=== PATIENT | female | born 1945 | race Caucasian/White ===

== ENCOUNTER → 2016-09-18 | Outpatient (CLI) | payer OTHER ==
[~2016-09-18] MED LIST: ACET325T96 PO; ADVIN10/60 INH; ATOR10TA88 PO; BROM0.07 OPR; CALC1TAB9 PO; CETI10TA10 PO; CHOL1TAB46 PO; FLUT0.15 NAE; LEVO50TA6 PO; MULT60CA PO; OMEP40CA41 PO; PRED1SUS3 OPR
[2016-09-18 13:03] LABS: BLOOD UREA NITROGEN 16 mg/dl (7-18); BUN/CREATININE RATIO 17.9 (10-20); CALCIUM 9.3 mg/dl (8.5-10.1); CARBON DIOXIDE 28 mmol/L (21-32); CHLORIDE 105 mmol/L (98-107); CREATININE 0.88 mg/dl (0.60-1.20); GLUCOSE 101 mg/dl (70-99); SODIUM 142 mmol/L (136-145)
== END | disposition home or self-care (01) ==
LOC: C.LAB1850 11:31
PROVIDERS: ATTEND Nurse Practitioner Adult Health
DX: R03.0 Elevated blood-pressure reading, without diagnosis of hypertension (principal)

== ENCOUNTER → 2016-10-03 | Day surgery (SDC) | payer OTHER ==
[2016-09-13 09:02] VITALS: Ht 167.6 cm; Wt 100.0 kg
[~2016-10-03] VITALS: Ht 167.6 cm; Wt 100.0 kg
[~2016-10-03] MED LIST changes: +500ML BSS 0.3ML EPI 1:1000PF IRRIG ONE; +ACETAMINOPHEN 325 MG TAB PO PRN; +AMVISC PLUS 0.8ML SYRINGE INT OCU ONE; +ATROPINE SULFATE 0.1 MG/ML 5ML SYR IV PRN; +BSS FLUSH ONE; +EpHEDrine SULFATE INJ 50 MG/ML AMP IV PRN; +EpINEphrine INJ 1MG/ML AMP 1 MG/ML AMP ONE; +LACTATED RINGER'S 1000ML 500 ML IV SCH; +LIDOCAINE 3.5% OPH GEL PER APPLICATION CHARGE ONE; +LIDOCAINE HCL 1% MPF 2 ML VIAL ONE; +MIDAZOLAM HCL 1 MG/ML 2ML VIAL ONE; +OCUCOAT 1 ML SOLN IO ONE; +POVIDONE-IODINE OP SOLN 30 ML BTL ONE; +PROPARACAINE 0.5% OP SOLN PER DROP CHARGE OPR SCH; +TOBRAMYCIN/DEXAMETHASONE OPH OINT PER APPLN CHARGE ONE
[2016-10-03] MEDS: PHENYLEPHRINE HCL 2.5% OP SOLN PER DROP CHARGE OPR SCH ×2 (10:17→10:22)
[2016-10-03] MEDS: TROPICAMIDE 1% OP SOLN PER DROP CHARGE OPR SCH ×2 (10:18→10:23)
[2016-10-03] MEDS: CYCLOPENTOLATE HCL 1% OP SOLN PER DROP CHARGE OPR SCH ×2 (10:19→10:24)
[2016-10-03] MEDS: KETOROLAC 0.5% OP SOLN PER DROP CHARGE OPR SCH ×2 (10:20→10:25)
[2016-10-03] MEDS: GATIFLOXACIN OP SOLN PER DROP CHARGE OPR SCH ×2 (10:21→10:30)
--- NOTE | 2016-10-03 10:44 | History & Physical Bridge - [place] ---
H&P Re-Evaluation Bridge Note: I have examined the patient, reviewed the History & Physical and in the interval since the performance of the History & Physical I have noted the following changes of clinical significance: No changes noted
--- NOTE | 2016-10-03 11:28 | Discharge Instructions-SurgCtr ---
Discharge Instructions Date of Service Oct 03, 2016. Visit Reason for Visit: Cataract Right Eye Discharge Discharge Diagnosis / Problem: cataract Discharge Goals Goal(s): Improve function Activity Recommendations Activity Limitations: per Instructions/Follow-up section Anesthesia . Post Anesthesia Instructions: If you have had General Anesthesia or IV Sedation: * Do not drive today. * Resume driving when surgeon permits. * Do not make important decisions or sign legal documents today. * Call surgeon for: 1. Temperature elevations greater than 101 degrees F. 2. Uncontrollable pain. 3. Excessive bleeding. 4. Persistent nausea and vomiting. 5. Medication intolerance (nausea, vomiting or rash). * For nausea and vomiting use only clear liquids such as: tea, soda, bouillon until nausea subsides, then gradually increase diet as tolerated. * If you have any concerns or questions, call your surgeon's office. If physician is unavailable and it is an emergency, call 911 or go to the nearest emergency room. . Instructions / Follow-Up Instructions / Follow-Up ACTIVITY RECOMMENDATIONS: * No strenuous lifting, jogging or running for 4 days * No swimming or yard work for 1 week. * Limited bending is permitted, such as putting on shoes. RETURN TO SCHOOL/WORK: No work until seen by physician in office. MEDICATIONS: Resume previous medications unless instructed otherwise by your surgeon. This includes eye drops for glaucoma. Zymaxid/Gatifloxacin (werner cap) - one drop every 2 hours until bedtime Nevanac/Ilevro/Prolensa/Ketorolac (kimball cap) - one drop every 4 hours until bedtime Prednisolone (white/pink cap, SHAKE WELL) - one drop every 2 hours until bedtime Starting tomorrow - all 3 drops every 4 hours until seen in the office Optive drops - as needed for discomfort SPECIAL CARE INSTRUCTIONS: * Wear eyeshield when sleeping, for four nights. * You may wear your own glasses or sunglasses while awake. * You may read or watch TV * You may shower and wash your face, but be gentle around the eye and pat dry. * Blurry vision and mild irritation are normal. * Call office if pain is more severe or vision becomes dark at . FOLLOW UP VISIT: Follow-up with Dr Carey tomorrow. Diet Recommendations Home Diet: resume previous diet Procedures Procedures Performed: Right Cataract Phacoemulsification With Intraocular Lens Implant Pending Studies Studies pending at discharge: no Medical Emergencies . Who to Call and When: Medical Emergencies: If at any time you feel your situation is an emergency, please call 911 immediately. . Non-Emergent Contact Non-Emergency issues call your: Family Resource Management Professor . . "Provider Documentation" section prepared by Mac Carey.
--- NOTE | 2016-10-03 11:28 | [facility] Operative Report ---
Operative Report Date of Service Oct 03, 2016. Operative Report 1. PREOPERATIVE DIAGNOSIS: Cataract of the right eye. 2. POSTOPERATIVE DIAGNOSIS: Same. 3. PROCEDURE: Phacoemulsification with intraocular lens implantation of the right eye. SURGEON: Dr. Mac Carey. ANESTHESIA: Topical Lidocaine gel, 1% Non- Preserved intracameral Lidocaine, and monitored intravenous sedation. INDICATIONS FOR THE PROCEDURE: The patient is a 71 - year-old female with a history of cataract of the right eye causing significant visual impairment. The details of the proposed procedure were explained to the patient who asked appropriate questions and following discussion of all risks, benefits and alternatives agreed to have the procedure done. 4. OPERATION AND FINDINGS: DESCRIPTION OF PROCEDURE: After informed consent was obtained, the patient was brought to the Operating Room at the [facility]. The patient was placed in a supine position and then the right eye was prepped and draped in the usual sterile fashion for intraocular surgery. A drop of topical Lidocaine gel was placed in the operative eye. A wire lid speculum was then placed in the fornices. A corneal paracentesis was then created temporally. The Non-Preserved Lidocaine was then instilled into the anterior chamber. The anterior chamber was then pressurized with viscoelastic. A 2.0 mm clear corneal incision was then created temporally. A cystotome was inserted into the anterior chamber and used to create a tear in the anterior lens capsule. This capsular tear was then used to create a small flap and the flap was dragged in a counterclockwise direction in order to create a continuous curvilinear capsulorrhexis. Hydrodissection was accomplished with balanced salt solution. Phacoemulsification of the lens nucleus was then performed in a standard [id number] technique. The phaco time was 24 seconds with an average power of 18 %. The remaining cortical material was removed using irrigation aspiration. The capsular bag was then filled with viscoelastic. A Bausch & Lomb MX60 +22.5 diopters lens was then loaded into the injector and injected into the capsular bag. The remaining viscoelastic was removed with the irrigation aspiration handpiece. The wound was hydrated and then checked and found to be watertight. The intraocular pressure was checked and found to be adequate. The wire lid speculum was removed and the patient's face was cleaned and dried. TobraDex ointment was placed in the inferior fornix. The patient was discharged to the Recovery Room having tolerated the procedure well. There were no complications. The patient will be seen tomorrow in the office for follow-up. I attest to the content of the Intraoperative Record and any orders documented therein. Any exceptions are noted below.
[2016-10-03 11:29] VITALS: TEMP 36.4
--- NOTE | 2016-10-03 11:48 | Anesthesia Progress Nt - [facility] ---
Anesthesia Post Op Note Date & Time Oct 03, 2016 at 11:49 Vital Signs Pain Intensity: 0 Vital Signs Past 12 Hours Date Time Temp Pulse Resp B/P Pulse Ox O2 Delivery O2 Flow Rate FiO2 10/03/16 11:29 36.4 80 16 151/90 95 Room Air 10/03/16 10:12 36.4 81 18 170/100 95 Room Air Notes Mental Status: alert / awake / arousable, participated in evaluation Pt Amnestic to Procedure: Yes Nausea / Vomiting: adequately controlled Pain: adequately controlled Airway Patency, RR, SpO2: stable & adequate BP & HR: stable & adequate Hydration State: stable & adequate Anesthetic Complications: no major complications apparent
[2016-10-03 11:53] VITALS: BP 140/89; PULSE 73; O2SAT 97
== END | disposition home or self-care (01) ==
LOC: X.SURG 10:01
PROVIDERS: ATTEND Ophthalmology
DX: H26.9 Unspecified cataract (principal); E03.9 Hypothyroidism, unspecified; E78.5 Hyperlipidemia, unspecified; R03.0 Elevated blood-pressure reading, without diagnosis of hypertension

== ENCOUNTER → 2016-10-24 | Day surgery (SDC) | payer OTHER ==
[2016-10-12 14:05] VITALS: Ht 167.6 cm; Wt 100.0 kg
[~2016-10-24] VITALS: Ht 167.6 cm; Wt 100.0 kg
[~2016-10-24] MED LIST changes: +FENTANYL CITRATE INJ 50 MCG/1 ML 2 ML VIAL IV PRN; +FLUMAZENIL 0.1 MG/1 ML 10 ML VIAL IV PRN; +HYDROmorphone INJ 2 MG/ML SYR/VIAL IV PRN; +LABETALOL HCL IV 5 MG/ML 20ML IV PRN; +MEPERIDINE HCL 25 MG/ML CARP IV PRN; +NALOXONE HCL 0.4 MG/1 ML VIAL/CARP IV PRN; +ONDANSETRON INJ 2 MG/ML 2 ML VIAL IV PRN; +PHENYLEPHRINE 100MCG/ML 5ML SYR IV PRN; +PROPARACAINE 0.5% OP SOLN PER DROP CHARGE OPL SCH; -PROPARACAINE 0.5% OP SOLN PER DROP CHARGE OPR SCH
[2016-10-24] MEDS: PHENYLEPHRINE HCL 2.5% OP SOLN PER DROP CHARGE OPL SCH ×2 (08:08→08:14)
[2016-10-24] MEDS: TROPICAMIDE 1% OP SOLN PER DROP CHARGE OPL SCH ×2 (08:09→08:15)
[2016-10-24] MEDS: CYCLOPENTOLATE HCL 1% OP SOLN PER DROP CHARGE OPL SCH ×2 (08:10→08:16)
[2016-10-24] MEDS: KETOROLAC 0.5% OP SOLN PER DROP CHARGE OPL SCH ×2 (08:11→08:17)
[2016-10-24] MEDS: GATIFLOXACIN OP SOLN PER DROP CHARGE OPL SCH ×2 (08:12→08:24)
--- NOTE | 2016-10-24 09:09 | Discharge Instructions-SurgCtr ---
Discharge Instructions Date of Service Oct 24, 2016. Visit Reason for Visit: Left Cataract Discharge Discharge Diagnosis / Problem: cataract Discharge Goals Goal(s): Improve function Activity Recommendations Activity Limitations: per Instructions/Follow-up section Anesthesia . Post Anesthesia Instructions: If you have had General Anesthesia or IV Sedation: * Do not drive today. * Resume driving when surgeon permits. * Do not make important decisions or sign legal documents today. * Call surgeon for: 1. Temperature elevations greater than 101 degrees F. 2. Uncontrollable pain. 3. Excessive bleeding. 4. Persistent nausea and vomiting. 5. Medication intolerance (nausea, vomiting or rash). * For nausea and vomiting use only clear liquids such as: tea, soda, bouillon until nausea subsides, then gradually increase diet as tolerated. * If you have any concerns or questions, call your surgeon's office. If physician is unavailable and it is an emergency, call 911 or go to the nearest emergency room. . Instructions / Follow-Up Instructions / Follow-Up ACTIVITY RECOMMENDATIONS: * No strenuous lifting, jogging or running for 4 days * No swimming or yard work for 1 week. * Limited bending is permitted, such as putting on shoes. RETURN TO SCHOOL/WORK: No work until seen by physician in office. MEDICATIONS: Resume previous medications unless instructed otherwise by your surgeon. This includes eye drops for glaucoma. Zymaxid/Gatifloxacin (werner cap) - one drop every 2 hours until bedtime Nevanac/Ilevro/Prolensa/Ketorolac (kimball cap) - one drop every 4 hours until bedtime Prednisolone (white/pink cap, SHAKE WELL) - one drop every 2 hours until bedtime Starting tomorrow - all 3 drops every 4 hours until seen in the office Optive drops - as needed for discomfort SPECIAL CARE INSTRUCTIONS: * Wear eyeshield when sleeping, for four nights. * You may wear your own glasses or sunglasses while awake. * You may read or watch TV * You may shower and wash your face, but be gentle around the eye and pat dry. * Blurry vision and mild irritation are normal. * Call office if pain is more severe or vision becomes dark at . FOLLOW UP VISIT: Follow-up with Dr Carey tomorrow. Diet Recommendations Home Diet: resume previous diet Procedures Procedures Performed: Left Cataract Phacoemulsification With Intraocular Lens Implant Pending Studies Studies pending at discharge: no Medical Emergencies . Who to Call and When: Medical Emergencies: If at any time you feel your situation is an emergency, please call 911 immediately. . Non-Emergent Contact Non-Emergency issues call your: Administrative Clerk . . "Provider Documentation" section prepared by Mac Carey.
--- NOTE | 2016-10-24 09:10 | [facility] Operative Report ---
Operative Report Date of Service Oct 24, 2016. Operative Report 1. PREOPERATIVE DIAGNOSIS: Cataract of the left eye. 2. POSTOPERATIVE DIAGNOSIS: Same. 3. PROCEDURE: Phacoemulsification with intraocular lens implantation of the left eye. SURGEON: Dr. Mac Carey. ANESTHESIA: Topical Lidocaine gel, 1% Non- Preserved intracameral Lidocaine, and monitored intravenous sedation. INDICATIONS FOR THE PROCEDURE: The patient is a 71 - year-old female with a history of cataract of the left eye causing significant visual impairment. The details of the proposed procedure were explained to the patient who asked appropriate questions and following discussion of all risks, benefits and alternatives agreed to have the procedure done. 4. OPERATION AND FINDINGS: DESCRIPTION OF PROCEDURE: After informed consent was obtained, the patient was brought to the Operating Room at the [facility]. The patient was placed in a supine position and then the left eye was prepped and draped in the usual sterile fashion for intraocular surgery. A drop of topical Lidocaine gel was placed in the operative eye. A wire lid speculum was then placed in the fornices. A corneal paracentesis was then created temporally. The Non-Preserved Lidocaine was then instilled into the anterior chamber. The anterior chamber was then pressurized with viscoelastic. A 2.0 mm clear corneal incision was then created temporally. A cystotome was inserted into the anterior chamber and used to create a tear in the anterior lens capsule. This capsular tear was then used to create a small flap and the flap was dragged in a counterclockwise direction in order to create a continuous curvilinear capsulorrhexis. Hydrodissection was accomplished with balanced salt solution. Phacoemulsification of the lens nucleus was then performed in a standard [id number]-[id number] technique. The phaco time was 29 seconds with an average power of 9 %. The remaining cortical material was removed using irrigation aspiration. The capsular bag was then filled with viscoelastic. A Bausch & Lomb MX60 +22.0 diopters lens was then loaded into the injector and injected into the capsular bag. The remaining viscoelastic was removed with the irrigation aspiration handpiece. The wound was hydrated and then checked and found to be watertight. The intraocular pressure was checked and found to be adequate. The wire lid speculum was removed and the patient's face was cleaned and dried. TobraDex ointment was placed in the inferior fornix. The patient was discharged to the Recovery Room having tolerated the procedure well. There were no complications. The patient will be seen tomorrow in the office for follow-up. I attest to the content of the Intraoperative Record and any orders documented therein. Any exceptions are noted below.
[2016-10-24 09:11] VITALS: TEMP 36.6
--- NOTE | 2016-10-24 09:15 | Anesthesia Progress Nt - [facility] ---
Anesthesia Post Op Note Date & Time Oct 24, 2016 at 09:15 Vital Signs Pain Intensity: 0 Vital Signs Past 12 Hours Date Time Temp Pulse Resp B/P Pulse Ox O2 Delivery O2 Flow Rate FiO2 10/24/16 09:11 36.6 77 12 119/81 95 Room Air 10/24/16 08:00 36.5 79 16 141/85 95 Room Air Notes Mental Status: alert / awake / arousable, participated in evaluation Pt Amnestic to Procedure: Yes Nausea / Vomiting: adequately controlled Pain: adequately controlled Airway Patency, RR, SpO2: stable & adequate BP & HR: stable & adequate Hydration State: stable & adequate Anesthetic Complications: no major complications apparent
[2016-10-24 09:27] VITALS: BP 134/85; PULSE 72; O2SAT 96
== END | disposition home or self-care (01) ==
LOC: X.SURG 07:32
PROVIDERS: ATTEND Ophthalmology
DX: H26.9 Unspecified cataract (principal); K21.9 Gastro-esophageal reflux disease without esophagitis; I10 Essential (primary) hypertension; E78.5 Hyperlipidemia, unspecified; E03.9 Hypothyroidism, unspecified; Z98.51 Tubal ligation status; J45.909 Unspecified asthma, uncomplicated; Z98.890 Other specified postprocedural states; E66.9 Obesity, unspecified; Z68.38 Body mass index [BMI] 38.0-38.9, adult

== ENCOUNTER → 2017-03-22 | Outpatient (CLI) | payer OTHER ==
[~2017-03-22] MED LIST changes: -500ML BSS 0.3ML EPI 1:1000PF IRRIG ONE; -ACETAMINOPHEN 325 MG TAB PO PRN; -AMVISC PLUS 0.8ML SYRINGE INT OCU ONE; -ATROPINE SULFATE 0.1 MG/ML 5ML SYR IV PRN; -BSS FLUSH ONE; -EpHEDrine SULFATE INJ 50 MG/ML AMP IV PRN; -EpINEphrine INJ 1MG/ML AMP 1 MG/ML AMP ONE; -FENTANYL CITRATE INJ 50 MCG/1 ML 2 ML VIAL IV PRN; -FLUMAZENIL 0.1 MG/1 ML 10 ML VIAL IV PRN; -HYDROmorphone INJ 2 MG/ML SYR/VIAL IV PRN; -LABETALOL HCL IV 5 MG/ML 20ML IV PRN; -LACTATED RINGER'S 1000ML 500 ML IV SCH; -LIDOCAINE 3.5% OPH GEL PER APPLICATION CHARGE ONE; -LIDOCAINE HCL 1% MPF 2 ML VIAL ONE; -MEPERIDINE HCL 25 MG/ML CARP IV PRN; -MIDAZOLAM HCL 1 MG/ML 2ML VIAL ONE; -NALOXONE HCL 0.4 MG/1 ML VIAL/CARP IV PRN; -OCUCOAT 1 ML SOLN IO ONE; -ONDANSETRON INJ 2 MG/ML 2 ML VIAL IV PRN; -PHENYLEPHRINE 100MCG/ML 5ML SYR IV PRN; -POVIDONE-IODINE OP SOLN 30 ML BTL ONE; -PROPARACAINE 0.5% OP SOLN PER DROP CHARGE OPL SCH; -TOBRAMYCIN/DEXAMETHASONE OPH OINT PER APPLN CHARGE ONE
--- NOTE | 2017-03-23 13:35 | MAMMOGRAPHY REPORT ---
BILATERAL DIGITAL SCREENING MAMMOGRAM TOMOSYNTHESIS WITH CAD: 03/22/2017 CLINICAL HISTORY: Routine screening. Patient has no complaints. TECHNIQUE: Breast tomosynthesis in addition to standard 2D mammography was performed. Current study was also evaluated with a Computer Aided Detection (CAD) system. COMPARISON: Comparison is made to exams dated: 01/07/2016 ultrasound, 01/07/2016 mammogram, 02/05/2015 mammogram, 02/03/2014 mammogram, 09/11/2012 mammogram, and 08/22/2011 mammogram - [facility]. BREAST COMPOSITION: The tissue of both breasts is heterogeneously dense, which may obscure small mas ses. FINDINGS: No suspicious masses, calcifications, or areas of architectural distortion are noted in ei ther breast. There has been no significant interval change compared to prior exams. Scattered bilater al benign-appearing calcifications are not significantly changed. A biopsy marker clip is again note d in the left upper inner quadrant. IMPRESSION: ACR BI-RADS CATEGORY 2: BENIGN There is no mammographic evidence of malignancy. A 1 year screening mammogram is recommended. The pa tient will receive written notification of the results. Approximately 10% of breast cancers are not detected with mammography. A negative mammographic report should not delay biopsy if a clinically suggestive mass is present. Marialuisa Collins M.D. /:03/22/2017 16:55:12 Professor Of Anthropology: Ashley ALANIZ(R)(M), [facility] letter sent: Normal 1/2 BI-RADS Code: ACR BI-RADS Category 2: Benign
== END | disposition home or self-care (01) ==
LOC: C.MAMM 14:03
PROVIDERS: ATTEND Internal Medicine
DX: Z12.31 Encounter for screening mammogram for malignant neoplasm of breast (principal)

== ENCOUNTER → 2017-06-04 | Outpatient (CLI) | payer OTHER ==
[~2017-06-04] MED LIST changes: +ATOR10TA82 PO; -ATOR10TA88 PO
[2017-06-04 11:39] LABS: ALT/SGPT 24 U/L (12-78); AST/SGOT 13 U/L (15-37); BLOOD UREA NITROGEN 17 mg/dl (7-18); BUN/CREATININE RATIO 19.5 (10-20); CALCIUM 9.2 mg/dl (8.5-10.1); CARBON DIOXIDE 31 mmol/L (21-32); CHLORIDE 106 mmol/L (98-107); CREATININE 0.86 mg/dl (0.60-1.20); GLUCOSE 98 mg/dl (70-99); POTASSIUM 4.1 mmol/L (3.5-5.1); SODIUM 139 mmol/L (136-145)
[2017-06-04 11:42] LABS: ALB/GLOB RATIO 0.9 (0.9-2); ALKALINE PHOSPHATASE 82 U/L (45-117); CHOLESTEROL 149 mg/dl (0-200); CHOLESTEROL/HDL RATIO 2.6; HDL CHOLESTEROL 58 mg/dl; LDL CHOLESTEROL CALCULATED 67 mg/dl; TRIGLYCERIDES 120 mg/dl (0-150); VERY LOW DENSITY LIPOPROT CALC 24 mg/dl
== END | disposition home or self-care (01) ==
LOC: C.LAB1850 10:11
PROVIDERS: ATTEND Internal Medicine
DX: E78.5 Hyperlipidemia, unspecified (principal); E55.9 Vitamin D deficiency, unspecified; Z11.59 Encounter for screening for other viral diseases

== ENCOUNTER → 2017-12-10 | Outpatient (CLI) | payer OTHER ==
[~2017-12-10] MED LIST changes: +ACET-1693 PO; -ACET325T96 PO
[2017-12-10 10:08] LABS: ALBUMIN 3.7 gm/dl (3.4-5.0); ALT/SGPT 29 U/L (12-78); AST/SGOT 19 U/L (15-37); BLOOD UREA NITROGEN 17 mg/dl (7-18); CARBON DIOXIDE 31 mmol/L (21-32); CHOLESTEROL 151 mg/dl (0-200); CREATININE 0.86 mg/dl (0.60-1.20); GLUCOSE 98 mg/dl (70-99); POTASSIUM 4.3 mmol/L (3.5-5.1); SODIUM 140 mmol/L (136-145)
[2017-12-10 10:18] LABS: ALKALINE PHOSPHATASE 76 U/L (45-117); LDL CHOLESTEROL CALCULATED 66 mg/dl; TOTAL PROTEIN 7.5 gm/dl (6.4-8.2)
== END | disposition home or self-care (01) ==
LOC: C.LAB1850 08:26
PROVIDERS: ATTEND Internal Medicine
DX: E78.5 Hyperlipidemia, unspecified (principal); E03.9 Hypothyroidism, unspecified

== ENCOUNTER 2019-02-19 06:36 | Inpatient (IN) ==
--- NOTE | 2019-01-27 09:22 | PAT Medication Instructions ---
Medication Instructions Date of Service January 27, 2019 Home Medications Medication Instructions Recorded omeprazole 40 mg capsule,delayed 40 mg PO QAM #90 cap 01/13/19 release Zyrtec 1 tab PO QAM albuterol sulfate [Proventil HFA] 1 puff INHALATION Q6H NEEDED atorvastatin 10 mg PO HS calcium carb-D3-mag ox-zinc ox 1 tab PO HS cholecalciferol (vitamin D3) [Vitamin D3] 1,000 unit PO QAM epinephrine [EpiPen] 0.3 mg IM Q3H NEEDED fluticasone propion-salmeterol [Advair Diskus] 1 puff INHALATION BID fluticasone propionate [Flonase Allergy Relief] 1 spray INTRANASAL BID ibuprofen 400 mg PO QID NEEDED omeprazole 40 mg capsule,delayed release 40 mg PO QAM acetaminophen 325 mg tablet 325 mg PO NEEDED levothyroxine 75 mcg PO QAM vit C,W-Kq-bfzoo-lutein-zeaxan [PreserVision AREDS-2] 1 tab PO HS Continue as directed epinephrine [EpiPen] 0.3 mg IM Q3H NEEDED ASK your surgeon for instructions ibuprofen 400 mg PO QID NEEDED STOP taking 2 weeks before surgery vit C,I-Dw-tfbbj-lutein-zeaxan [PreserVision AREDS-2] 1 tab PO HS DO NOT take the morning of surgery Zyrtec 1 tab PO QAM cholecalciferol (vitamin D3) [Vitamin D3] 1,000 unit PO QAM fluticasone propionate [Flonase Allergy Relief] 1 spray INTRANASAL BID Take morning of surgery With a small sip of water, OTHERWISE NOTHING TO EAT OR DRINK AFTER MIDNIGHT: albuterol sulfate [Proventil HFA] 1 puff INHALATION Q6H NEEDED (if needed; bring to hospital) fluticasone propion-salmeterol [Advair Diskus] 1 puff INHALATION BID omeprazole 40 mg capsule,delayed release 40 mg PO QAM acetaminophen 325 mg tablet 325 mg PO NEEDED (if needed; stop 4 hours before surgery) levothyroxine 75 mcg PO QAM Take evening before surgery albuterol sulfate [Proventil HFA] 1 puff INHALATION Q6H NEEDED (if needed) atorvastatin 10 mg PO HS calcium carb-D3-mag ox-zinc ox 1 tab PO HS fluticasone propion-salmeterol [Advair Diskus] 1 puff INHALATION BID fluticasone propionate [Flonase Allergy Relief] 1 spray INTRANASAL BID acetaminophen 325 mg tablet 325 mg PO NEEDED (if needed) Other Notes If you have any questions please call us at [phone] or [phone] or [phone] or [phone]
--- NOTE | 2019-01-27 09:44 | Anesthesiology Consultation ---
Date of Service January 27, 2019 Assessment & Plan (1) Encounter for pre-operative examination: Chart Review Chart Review: Acceptable Risk for Surgery and Patient seen in Pre Admission Testing Teaching & Discussion Instructed NPO after midnight before surgery, except medications with 15 cc of water. Medication instructions provided according to the PAT guidelines. History Surgery Operation Date: 02/19/19 08:50 Proposed Procedures p Left Total Knee Arthroplasty - Jose Miguel Holly MD Height/Weight Height: 5 ft 5 in Weight: 103.3 kg Allergies Allergy/AdvReac Type Severity Reaction Status Date / Time alendronate sodium AdvReac Mild Headache Verified 01/27/19 08:50 [From Fosamax] house dust mite AdvReac CONGESTION Verified 01/27/19 08:50 [place] Allergy Intermediate HIVES Uncoded 01/27/19 08:50 [place]istle Allergy Intermediate HIVES Uncoded 01/27/19 08:50 Dust Mite Extract AdvReac Mild CONGESTION Uncoded 01/27/19 08:50 Medications Home Medications Medication Instructions Recorded Confirmed Last Taken Zyrtec 1 tab PO QAM 04/30/18 01/27/19 05/07/18 06:30 albuterol sulfate [Proventil HFA] 1 puff INHALATION Q6H PRN 04/30/18 01/27/19 05/07/18 0630 atorvastatin 10 mg PO HS 04/30/18 01/27/19 05/06/18 23:59 calcium carb-D3-mag ox-zinc ox 1 tab PO HS 04/30/18 01/27/19 Unknown cholecalciferol (vitamin D3) 1,000 unit PO QAM 04/30/18 01/27/19 05/07/18 06:30 [Vitamin D3] epinephrine [EpiPen] 0.3 mg IM Q3H PRN 04/30/18 01/27/19 Unknown fluticasone propion-salmeterol 1 puff INHALATION BID 04/30/18 01/27/19 05/07/18 06:30 [Advair Diskus] fluticasone propionate [Flonase 1 spray INTRANASAL BID 04/30/18 01/27/19 05/06/18 23:59 Allergy Relief] ibuprofen 400 mg PO QID PRN 04/30/18 01/27/19 05/07/18 06:30 omeprazole 40 mg capsule,delayed 40 mg PO QAM #90 cap 01/13/19 01/27/19 Unknown release acetaminophen 325 mg tablet 325 mg PO ONCE PRN tab 01/14/19 01/27/19 Unknown levothyroxine 75 mcg PO QAM 01/27/19 01/27/19 Unknown vit C,Y-Up-mazie-lutein-zeaxan 1 tab PO HS 01/27/19 01/27/19 Unknown [PreserVision AREDS-2] Past Medical History Medical History Acid reflux disease (Chronic) Vitamin D deficiency (Chronic) Prediabetes (Chronic) Hypothyroidism (Chronic) Hyperlipidemia (Chronic) History of osteopenia (Chronic) Asthma INHALER PRN, TRIGGERED BY SEASONAL ALLERGIES. Environmental allergies Osteoarthritis Exercise / Class Metabolic Activity II 4-5 Yardwork/Stairs/Walk up hill (Denies CP or SOB with 1 FOS) Past Surgical History Surgical History H/O bilateral cataract extraction H/O oral surgery ON GUMS History of bilateral tubal ligation History of breast biopsy X2--LEFT BENIGN History of colonoscopy Past Anesthesia History No Hx of Anesthesia Complications and No Family Hx of Anesthesia Complications History of PONV No Hx of PONV and Hx of Motion Sickness Social History Smoking Status: Never smoker Do You Dip or Chew Tobacco: No Hx Alcohol Use: No Hx Substance Use: No substance use type: does not use Review of Systems Pt denies any recent chest pain, shortness of breath, palpitations, fever or URI. +chronic cough 2/2 allergies Physical Exam Vital Signs BP: 138/88 P: 73bpm SPO2: 95% RA T: 97.8 F R: 16 ENMT Mouth: + dental restorations (few crowns, one implant front upper incisor); no chipped teeth and no loose teeth Thyromental Distance: < 3.5 Finger Breadths (3) Mallampati Class: I Neck + thick neck; neck extension not limited Respiratory normal respiratory effort Auscultation: lungs clear to auscultation bilaterally Cardiovascular Rate/Rhythm: regular rate and regular rhythm Heart Sounds: no murmur Vessels: no carotid bruit Extremities: no edema Testing Laboratory Results 01/27/19 09:54 01/27/19 09:54 PT 9.8 Seconds (9.0-12.0) 01/27/19 09:54 INR 1.0 (0.9-1.1) 01/27/19 09:54 APTT 26.5 Seconds (21.0-31.0) 01/27/19 09:54 Hemoglobin A1c 5.9 % (4.5-5.6) H 01/27/19 09:54 Urine Color Yellow 01/27/19 Unknown Urine Appearance Clear (Clear) 01/27/19 Unknown Urine pH 5.5 (4.5-7.5) 01/27/19 Unknown Ur Specific [place] 1.019 (1.000-1.030) 01/27/19 Unknown Urine Protein Negative (Negative) 01/27/19 Unknown Urine Glucose (UA) Negative (Negative) 01/27/19 Unknown Urine Ketones Negative (Negative) 01/27/19 Unknown Urine Nitrite Negative (Negative) 01/27/19 Unknown Ur Leukocyte Esterase Negative (Negative) 01/27/19 Unknown Blood Type B Positive 01/27/19 09:54 Antibody Screen NEGATIVE 01/27/19 09:54 Electrocardiogram Date: 04/23/18 Findings: + NSR @ (77) Left axis deviation. Chest X-Ray Date: 01/27/19 IMPRESSION: Subsegmental atelectatic changes most pronounced within the right middle lobe and lingula. Otherwise negative chest.
[2019-01-27 12:32] LABS: Appearance Urine Clear (Clear); Bilirubin Urine Negative (Negative); Blood Urine Negative (Negative); Color Urine Yellow; Glucose Urine UA Negative (Negative); Ketones Urine Negative (Negative); Leukocyte Esterase Urine Negative (Negative); Nitrite Urine Negative (Negative); Protein Urine Negative (Negative); Specific Gravity Urine 1.019 (1.000-1.030); Urobilinogen Urine Negative (Negative); pH Urine 5.5 (4.5-7.5)
[2019-01-27 12:33] LABS: Basophils # (auto) 0.01 K/uL (0-0.2); Basophils % (auto) 0.2 %; Eosinophils # (auto) 0.05 K/uL (0-0.5); Hemoglobin 14.2 g/dL (12.0-16.0); Immature Granulocytes # (auto) 0.02 K/uL (0.00-0.02); Immature Granulocytes % (auto) 0.4 %; Lymphocytes # (auto) 1.41 K/uL (1.2-3.4); Lymphocytes % (auto) 28.4 %; Mean Corpuscular Hgb Conc 33.8 g/dL (32-36); Mean Corpuscular Volume 102.4 fL (80-100); Mean Platelet Volume 9.9 fL (7.4-10.4); Monocytes # (auto) 0.56 K/uL (0.11-0.59); Monocytes % (auto) 11.3 %; Neutrophils # (auto) 2.92 K/uL (1.4-6.5); Neutrophils % (auto) 58.7 %; Platelet Count 187 K/uL (130-400); RDW Coefficient of Variation 12.9 % (11.5-14.5); White Blood Count 4.97 K/uL (4.8-10.8)
[2019-01-27 12:38] LABS: Albumin Level 3.7 gm/dl (3.4-5.0); Calcium 9.1 mg/dl (8.5-10.1); Creatinine Clr Calc Pharmacy 60.6 ml/min; Est GFR (African American) 65.2; Est GFR (Non-African American) 56.2; Potassium 4.4 mmol/L (3.5-5.1)
[2019-01-27 12:49] LABS: Partial Thromboplastin Time 26.5 Seconds (21.0-31.0); Prothrombin Time 9.8 Seconds (9.0-12.0)
[2019-01-27 13:27] LABS: Estimated Average Glucose 123 mg/dl; Hemoglobin A1C 5.9 % (4.5-5.6)
--- NOTE | 2019-02-18 19:25 | History and Physical Report ---
DATE OF ADMISSION: 02/19/2019 CHIEF COMPLAINT: Chronic left knee pain. HISTORY OF PRESENT ILLNESS: This is a 73-year-old female patient of Dr. Holly'pedro complaining of chronic left knee pain, longstanding, now progressively getting worse. The patient has failed conservative treatment including Tylenol, anti-inflammatories, home exercise program, the use of a wrap and the use of a cane. She has increased pain with weightbearing activities and her pain does interfere with her activities of daily living. The patient has been diagnosed with end-stage osteoarthritis per clinical and radiographic exams and the patient wished to proceed with a left total knee arthroplasty. PAST MEDICAL HISTORY: Asthma, chronic cough, osteoarthritis, acid reflux, obesity. SOCIAL HISTORY: Nonsmoker, nondrinker. PAST SURGICAL HISTORY: Tubal ligation, breast biopsy x2, dental surgery. FAMILY HISTORY: Noncontributory. REVIEW OF SYSTEMS: Chronic left knee pain and instability. Otherwise, denies any shortness of breath, chest pain, nausea, vomiting or any other joint complaints. MEDICATIONS: 1. Atorvastatin 10 mg daily. 2. Omeprazole 40 mg daily. 3. PreserVision 2 tablets daily. 4. Advair Diskus 100 mcg twice daily inhalation as needed. 5. Ibuprofen 200 mg as needed. 6. Levothyroxine 75 mcg daily. 7. Fluticasone proprionate twice daily. 8. Zyrtec 10 mg daily. 9. Vitamin D3 1000 units daily. 10. Citracal plus vitamin D daily. ALLERGIES: No known drug allergies. PHYSICAL EXAMINATION: GENERAL: Well-developed, well-nourished 73-year-old female in no acute distress. She is alert and oriented x3 and pleasant. HEENT: Normocephalic, atraumatic. Extraocular motions are intact. Pupils are equal and reactive to light. HEART: Regular rate and rhythm, no murmurs. LUNGS: Clear. ABDOMEN: Soft, nontender, bowel sounds present. EXTREMITIES: Left knee reveals a varus deformity with medial joint line tenderness. She has a limited range of motion of 0-125. She has a mild effusion, 5/5 strength and neurologically and neurovascularly she is intact in her left lower extremity. DIAGNOSES: Left knee end-stage osteoarthritis, asthma, chronic cough, acid reflux, obesity. PLAN: The patient was advised of her diagnosis. Indications, risks, benefits, postop course have all been reviewed. The patient wished to proceed with a left total knee arthroplasty. Necessary consent forms, preoperative testing and clearances will be obtained.
[~2019-02-19 06:36] MED LIST changes: -ACET-1693 PO; +ACETAMINOPHEN 500 MG TAB PO SCH; -ADVIN10/60 INH; -ATOR10TA82 PO; -BROM0.07 OPR; +BUPIVACAINE 0.25% 30 ML VIAL ONE; +BUPIVACAINE 0.5 % 5 MG/1 ML PF 10ML VIAL ONE; -CALC1TAB9 PO; +CEFAZOLIN 2000MG 2,000 MG/15 ML SYR IV SCH; -CETI10TA10 PO; -CHOL1TAB46 PO; +CeleBREX 200 MG CAP PO SCH; +FAMOTIDINE 20 MG TAB PO SCH; -FLUT0.15 NAE; +GABAPENTIN 300 MG CAP PO SCH; -LEVO50TA6 PO; +LR 500ML BOLUS, THEN 15ML/HR IV SCH; +METOCLOPRAMIDE HCL 10 MG TABLET PO SCH; -MULT60CA PO; -OMEP40CA41 PO; -PRED1SUS3 OPR; +ROPIVACAINE 0.5% HCL/PF 150 MG, BUPIVACAINE 0.5% MPF 30 ML, EPINEPHrine 30MG/30ML (OR U... INSTIL SCH; +TRANEXAMIC ACID 1,000 MG **IV Intra-op IV SCH; +TRANEXAMIC ACID 1,000 MG **IV Pre-op IV SCH; +dexAMETHasone 4 MG TAB PO SCH
[2019-02-19] MEDS ORDERED: MIDAZOLAM HCL 1 MG/ML 2ML VIAL ONE (06:41)
[2019-02-19] MEDS ORDERED: ONDANSETRON INJ 2 MG/ML 2 ML VIAL ONE (06:41)
[2019-02-19] MEDS ORDERED: LIDOCAINE HCL 2% 2 ML VIAL/AMP(20MG/ML) INFIL ONE (06:41)
[2019-02-19] MEDS ORDERED: fentaNYL citrate 100 MCG/2 ML VIAL ONE (06:41)
[2019-02-19] MEDS ORDERED: PROPOFOL IV EMULSION 10 MG/ML 20 ML VIAL IV ONE (06:41)
--- NOTE | 2019-02-19 07:04 | History & Physical Bridge Note ---
Date of Service February 19, 2019 History & Physical Bridge Note I have examined the patient, reviewed the History & Physical and in the interval since the performance of the History & Physical I have noted the following changes of clinical significance: no changes noted
[2019-02-19] MEDS ORDERED: ORTHO JOINT ANESTHETIC ONE (07:27)
[2019-02-19] MEDS ORDERED: BACITRACIN INJ 50,000 UNIT VIAL ONE (07:27)
[2019-02-19] MEDS ORDERED: ONDANSETRON INJ 2 MG/ML 2 ML VIAL IV PRN ×2 (08:55→12:02)
[2019-02-19] MEDS ORDERED: ePHEDrine sulfate 50 MG/ML AMP IV PRN (08:55)
[2019-02-19] MEDS ORDERED: ATROPINE SULFATE 0.1 MG/ML 10ML SYR IV PRN (08:55)
[2019-02-19] MEDS ORDERED: fentaNYL citrate 100 MCG/2 ML VIAL IV PRN (08:55)
[2019-02-19] MEDS ORDERED: KETAMINE HCL INJ 50 MG/ML 10 ML VIAL ONE (09:23)
[2019-02-19] MEDS ORDERED: PHENYLEPHRINE 100MCG/ML 5ML SYR ONE (09:39)
--- NOTE | 2019-02-19 10:33 | Post Operative Brief Note ---
Immediate Post Op Note v1 Date of Surgery February 19, 2019 Pre & Post Diagnosis Operation Date: 02/19/19 08:40 Pre-Op Diagnosis: Left Knee Osteoarthritis Post-Op Diagnosis: Left Knee Osteoarthritis Procedure Operation Date: 02/19/19 08:40 Actual Procedures p Left Total Knee Arthroplasty(Left) - Jose Miguel Holly MD Surgeon Jose Miguel Holly MD Assembler Watch Train Melo CELIS Estimated Blood Loss 5 Findings Consistent with Post-Op Diagnosis Specimens Bone cuts Drains Hemovac Drain Anesthesia Type MAC Spinal Regional Complications none Disposition Accompanied Patient To Recovery: No Disposition: Recovery Room Overlapping Procedure I was present for: the critical portions of procedure.
--- NOTE | 2019-02-19 11:23 | XRay Report ---
TWO VIEWS LEFT KNEE CLINICAL HISTORY: Postoperative examination. FINDINGS: AP and crosstable lateral portable views of the left knee are obtained. A left knee arthrop lasty is in near anatomic alignment. There has been undersurface remodeling of the patella. No acute fracture is seen. There are expected postoperative changes around the knee including skin clips, a perez rgical drain, soft tissue edema, and subcutaneous gas. IMPRESSION: Expected postoperative changes status post left knee arthroplasty. No acute fracture is s een. Electronically signed by: Omar Garg M.D. 02/19/2019 11:22 AM
--- NOTE | 2019-02-19 11:40 | Anesthesiology Progress Note ---
Date of Service February 19, 2019 Anesthesia Post Procedure Vital Signs Vital Signs: Temp Pulse Pulse Resp BP Pulse Ox 02/19/19 11:30 36.6 C 72 18 111/73 96 02/19/19 11:19 36.6 C 74 18 116/72 97 02/19/19 11:10 104 H 18 111/69 97 02/19/19 11:00 103 H 18 103/63 96 02/19/19 10:54 36.9 C 101 H 18 97/58 L 97 02/19/19 07:39 36.4 C L 77 20 179/94 H 93 Transfer of Care Handoff Completed per policy Notes Mental Status: alert / awake / arousable and participated in evaluation Nausea / Vomiting: adequately controlled Pain: adequately controlled Airway Patency, RR, SpO2: stable & adequate BP & HR: stable & adequate Hydration State: stable & adequate Neuraxial Anesthesia: was administered and sensory block is resolving Anesthetic Complications: no major complications apparent and Pt Satisfied with anesthetic care
[2019-02-19] MEDS ORDERED: ALUMINUM/MAGNESIUM SUSP 30 ML UDC PO PRN (12:02)
[2019-02-19] MEDS ORDERED: BISACODYL 10 MG SUPP PR PRN (12:02)
[2019-02-19] MEDS ORDERED: OXYCODONE HCL IR 5 MG TAB (IMMEDIATE RELEASE) PO PRN (12:02)
[2019-02-19] MEDS ORDERED: HYDROmorphone INJ 0.5 MG/0.5 ML SYR IV PRN (12:02)
[2019-02-19] MEDS ORDERED: ALBUTEROL HFA 8 GM INHALER INH PRN (12:02)
[2019-02-19] MEDS ORDERED: NALOXONE HCL 0.4 MG/1 ML VIAL/CARP IV PRN (12:02)
[2019-02-19] MEDS ORDERED: MAGNESIUM HYDROXIDE SUSP 30 ML UDC PO PRN (12:02)
[2019-02-19] MEDS: SODIUM CHLORIDE 0.9% 1000ML 1,000 ML IV SCH (13:34)
[2019-02-19] MEDS: ACETAMINOPHEN 500 MG TAB PO SCH ×2 (14:13→21:35)
[2019-02-19] MEDS: CEFAZOLIN 2000MG 2,000 MG/15 ML SYR IV SCH (15:48)
--- NOTE | 2019-02-19 17:57 | Hospitalist Consultation ---
Date of Consultation February 19, 2019 Assessment & Plan (1) Hypothyroidism: She appears clinically euthyroid last TSH was checked July 2018 and was in normal condition continue with her Synthroid (2) Asthma: She does not use her inhaler for some time has no current symptoms of asthma we will continue with clinical observation for evaluate exacerbation before she has any treatment (3) DVT prophylaxis: Surgery is chosen aspirin 81 twice daily as DVT prevention History of Present Illness Attending Physician: Jose Miguel Holly MD History of Present Illness Consultation for medical management postop left total knee arthroplasty. The patient has a fairly minimal past history her active problems really include her hypothyroidism and asthma which is not been an issue for some time. 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 Patient seen in the company of her she is doing quite well she is very little pain she is good sensation and able to move her toes on her left foot feels she is any shortness of breath associate with her history of asthma Allergies Allergy/AdvReac Type Severity Reaction Status Date / Time alendronate sodium AdvReac Mild Headache Verified 02/19/19 07:23 [From Fosamax] house dust mite AdvReac CONGESTION Verified 02/19/19 07:23 Frio Tree Allergy Intermediate HIVES Uncoded 02/19/19 07:23 Nauruan Thistle Allergy Intermediate HIVES Uncoded 02/19/19 07:23 Dust Mite Extract AdvReac Mild CONGESTION Uncoded 02/19/19 07:23 Home Medications Home Medications Medication Instructions Recorded Confirmed Type Zyrtec 1 tab PO QAM 04/30/18 02/19/19 History albuterol sulfate [Proventil HFA] 1 puff INHALATION Q6H PRN 04/30/18 02/19/19 History atorvastatin 10 mg PO HS 04/30/18 02/19/19 History calcium carb-D3-mag ox-zinc ox 1 tab PO HS 04/30/18 02/19/19 History cholecalciferol (vitamin D3) 1,000 unit PO QAM 04/30/18 02/19/19 History [Vitamin D3] epinephrine [EpiPen] 0.3 mg IM Q3H PRN 04/30/18 02/19/19 History fluticasone propion-salmeterol 1 puff INHALATION BID 04/30/18 02/19/19 History [Advair Diskus] fluticasone propionate [Flonase 1 spray INTRANASAL BID 04/30/18 02/19/19 History Allergy Relief] ibuprofen 400 mg PO QID PRN 04/30/18 02/19/19 History omeprazole 40 mg capsule,delayed 40 mg PO QAM #90 cap 01/13/19 02/19/19 Rx release acetaminophen 325 mg tablet 325 mg PO ONCE PRN tab 01/14/19 02/19/19 History levothyroxine 75 mcg PO QAM 01/27/19 02/19/19 History vit C,U-Xr-zflho-lutein-zeaxan 1 tab PO HS 01/27/19 02/19/19 History [PreserVision AREDS-2] Patient History Medical History Acid reflux disease (Chronic) Vitamin D deficiency (Chronic) Prediabetes (Chronic) Hypothyroidism (Chronic) Hyperlipidemia (Chronic) History of osteopenia (Chronic) Environmental allergies Asthma INHALER PRN, TRIGGERED BY SEASONAL ALLERGIES. Osteoarthritis Surgical History H/O bilateral cataract extraction H/O oral surgery ON GUMS History of bilateral tubal ligation History of breast biopsy X2--LEFT BENIGN History of colonoscopy Social History Preferred Language: Faroese Communication Ability: Effective Beliefs That Will Affect Care: None Current Living Situation: Spouse Feels Safe at Home: Yes Safety Concerns: Feels Safe At This Time Smoking Status: Never smoker Do You Dip or Chew Tobacco: No Second Hand Exposure: No Hx Alcohol Use: No Hx Substance Use: No Review of Systems Review of Systems: ROS: well nourished well developed. No double vision blurry vision No problems with speech or swallowing No palpitations, chest pain or pressure No Wheezing or breathing issues No abdominal pain nausea vomiting diarrhea changes in appetite or weight No burning urine urine frequency or changes in color Typical postoperative discomfort to her left leg No skin rashes or oral lesions No unusual bruising or bleeding No focused back pain or numbness or loss of strength No changes in memory or confusion Physical Exam Physical Exam: The patient appeared well nourished and normally developed. Vital signs as documented. Head exam is unremarkable. normocephalic, atraumatic Neck is without jugular venous distension, thyromegaly, or lymphademopathy Lungs are clear to auscultation and percussion. Cardiac exam reveals Rhythm is regular. First and second heart sounds normal. Abdominal exam reveals normal bowel sounds, no masses, no organomegaly Extremities distally are warm to touch good capillary refill she can move her toes and has sensation intact on the left equal to the right Neurologic exam is A&Ox3, no focal deficits, strength is equal bilateral Psychologically seems neither anxious or depressed Skin is warm Dry without bruises or lesions Results & Data Vital Signs (Past 12 Hours) Vital Signs Temp Pulse Pulse Resp BP Pulse Ox 02/19/19 15:11 36.5 C 90 18 146/86 H 94 02/19/19 14:01 36.6 C 80 20 134/82 95 02/19/19 13:05 36.4 C L 68 20 122/80 98 02/19/19 12:32 36.4 C L 69 20 120/81 93 02/19/19 11:55 36.3 C L 72 18 134/82 98 02/19/19 11:30 36.6 C 72 18 111/73 96 02/19/19 11:20 36.6 C 74 18 116/72 97 02/19/19 11:10 104 H 18 111/69 97 02/19/19 11:00 103 H 18 103/63 96 02/19/19 10:54 36.9 C 101 H 18 97/58 L 97 02/19/19 07:39 36.4 C L 77 20 179/94 H 93 PG Care Time/CCT Total # of Minutes Spent Total Time Spent with Patient: Total time spent is greater than 50% in coordination of care (as documented) at patient's floor/unit and/or counseling patient:
[2019-02-19] MEDS: FLUTICASONE/SALMETEROL 100/50 (ADVAIR) 14 PUFF/1 INHALER INH SCH (20:19)
[2019-02-19] MEDS: SENNA 8.6 MG TAB PO SCH (20:19)
[2019-02-19] MEDS: DOCUSATE SODIUM 100 MG CAP PO SCH (20:19)
[2019-02-19] MEDS: ATORVASTATIN 10 MG TAB PO SCH (20:19)
[2019-02-19] MEDS: FLUTICASONE PROPIONATE NA SPR 16 GM BTL SCH (20:20)
--- NOTE | 2019-02-19 20:21 | Operative Report ---
Post Operative Report Pre & Post Diagnosis Operation Date: 02/19/19 08:40 Pre-Op Diagnosis: Left Knee Osteoarthritis Post-Op Diagnosis: Left Knee Osteoarthritis Procedure Operation Date: 02/19/19 08:40 Actual Procedures p Left Total Knee Arthroplasty(Left) - Jose Miguel Holly MD Surgeon Jose Miguel Holly MD Chemical Radiation Technician Melo CELIS Estimated Blood Loss 5 Findings Consistent with Post-Op Diagnosis Specimens Bone cuts Drains 2 Hemovac Anesthesia Type MAC Spinal Regional Complications none Disposition Accompanied Patient To Recovery: No Disposition: Recovery Room Indications 73-year-old female with end-stage osteoarthritis of her left knee. Patient's failed conservative management. Radiograph symmetry of varus knee [id number] medial compartment and patellofemoral osteoarthritis Description of Procedure Patient taken to the operating room the size under spinal MAC regional anesthesia. Patient was placed supine on the operating table. A pneumatic tourniquet was placed about the left upper thigh. The left lower extremity was prepped and draped in sterile fashion. Knee exam demonstrated slight flexion contracture of 5 degrees and flexion to 120 degrees no instability mild effusion. The leg was elevated exsanguinated with an Esmarch bandage and pneumatic tourniquet was raised to 325 millimeters of mercury. Skin incised sharply in longitudinal fashion. Subcutaneous flaps elevated. Incision was made through the medial retinaculum extending up in the mid third of the quadriceps tendon and down to the medial tibial tubercle. Intra-articular findings demonstrated tricompartmental osteoarthritis varus knee [id number] medial compartment patellofemoral osteoarthritis. The [employer] triathlon total knee arthroplasty system was used. To expose the knee the infrapatellar fat pad was resected. The meniscal remnants and cruciate ligaments were resected. The anterior fat pad over the femur in the area of the anterior flange of the femoral component was resected. Lateral synovial bands release. The femur was exposed. An intramedullary drill hole was made into the canal. A guide elaine was placed. Distal femoral cutting guide was adjusted to resect a 5 degree valgus cut with 10 millimeters distal femur resected. The knee was extended and a subperiosteal peel lateral release was performed around the patella. Patella width was measured and width was reproduced using a freehand cut technique and a 33 symmetrical patella component. The 3 drill holes were made and the excess lateral facet was beveled off to prevent any impingement. Attention was taken back to the femur which was exposed with retractors and the femoral sizing guide was pinned in position. The drill holes were placed in 3 of external rotation to match epicondylar axis. Femur sized for a 4 component. The 4-in-1 cutting block was placed and then the anterior posterior and chamfer cuts are made. The tibia was then subluxed. The external tibial cutting guide was just to make a perpendicular cut to the long axis of the tibia below the most deficient bone loss side. A lamina practical nursing faculty was used and the flexion extension gaps were balanced. All posterior osteophytes removed. All meniscal remnants were resected. The tibia exposed and the trial tibial component size 3 was externally rotated in line with the tibial tubercle and pinned in position. The punch for stem was used. The notch cutting device was centered appropriately and the femoral notch cut was made. The femoral trial was inserted. Trial tibial inserts were placed and size 11 gave balanced ligaments through flexion and extension. Patella tracking was assessed. The patella tracked centrally. The trial components were then removed and the orthomix anesthetic cocktail was injected per protocol. The knee was then copiously irrigated with pulsatile lavage antibiotic solution. Final components were then cemented with Simplex cement. Final components were Minnie triathlon size 4 left femoral component posterior stabilized, 3 tibial baseplate, X3 polyethylene 11 mm posterior stabilized insert, 33 x 9 symmetrical patella. While the cement cured the Betadine soak was used per protocol. After cement cured further pulsatile lavage irrigation performed and 2 Hemovac drains were brought out laterally. The quadriceps tendon and medial retinaculum were closed with figure of 8 #1 Vicryl sutures. The knee was taken through full range of motion and the repair was secure. The subcutaneous tissues were closed with 2-0 Vicryl sutures. Skin was closed with jose. Sterile dressings were applied. Patient procedure well. Melo CELIS was my physician ambulance assistant who assisted in patient positioning prepping and draping,leg positioning ,soft tissue retraction and instrument management and participated in the closing and will participate in postoperative care of the patient. The patient tolerated the procedure well. I attest to the content of the Intraoperative Record and any orders documented therein. Any exceptions are noted below.
[2019-02-19] MEDS ORDERED: ASPIRIN 81 MG ECTAB PO SCH (21:00)
[2019-02-20] MEDS: CEFAZOLIN 2000MG 2,000 MG/15 ML SYR IV SCH (01:22)
[2019-02-20] MEDS: SODIUM CHLORIDE 0.9% 1000ML 1,000 ML IV SCH (01:23)
[2019-02-20] MEDS: LEVOTHYROXINE SODIUM 75 MCG TABLET PO SCH (05:35)
[2019-02-20] MEDS: ACETAMINOPHEN 500 MG TAB PO SCH ×3 (05:36→21:42)
[2019-02-20 05:44] LABS: Hematocrit (blood only) 34.9 % (37-47); Hemoglobin 11.7 g/dL (12.0-16.0); Mean Corpuscular Hgb Conc 33.5 g/dL (32-36); Mean Corpuscular Volume 103.6 fL (80-100); Mean Platelet Volume 9.5 fL (7.4-10.4); Platelet Count 192 K/uL (130-400); RDW Coefficient of Variation 12.8 % (11.5-14.5); Red Blood Count 3.37 M/uL (4.2-5.4); White Blood Count 15.26 K/uL (4.8-10.8)
[2019-02-20 06:13] LABS: BUN Creatinine Ratio 16.8 (10-20); Calcium 8.4 mg/dl (8.5-10.1); Creatinine Clr Calc Pharmacy 59.2 ml/min; Est GFR (African American) 62.9; Est GFR (Non-African American) 54.3; Potassium 4.3 mmol/L (3.5-5.1)
--- NOTE | 2019-02-20 07:51 | Orthopedic Progress Note ---
Date of Service February 20, 2019 Assessment & Plan (1) Osteoarthritis of left knee: POD 1 s/p L TKA PT/OT; WBAT DVT prophylaxis - Xarelto,SCD's,INDY's Pain management as written Planning for dc to home tomorrow Subjective POD 1 s/p L TKA Sitting up in bed this AM. Awake,alert. No complaints. Pain controlled. Denies SOB,CP,LH. Physical Exam Physical Exam: Dressings C/D/I. Calves soft, NT. NV intact. Toes mobile. HV 75ml latest shift. Results & Data Vital Signs (Past 12 Hours) Vital Signs Temp Pulse Resp BP Pulse Ox 02/20/19 06:57 36.6 C 72 18 124/77 94 02/20/19 03:30 36.6 C 68 16 99/63 L 94 02/19/19 22:45 36.6 C 96 H 18 98/64 L 93 Laboratory Results Laboratory Results WBC 15.26 K/uL (4.8-10.8) H 02/20/19 05:29 RBC 3.37 M/uL (4.2-5.4) L 02/20/19 05:29 Hgb 11.7 g/dL (12.0-16.0) L 02/20/19 05:29 Hct 34.9 % (37-47) L 02/20/19 05:29 MCV 103.6 fL (80-100) H 02/20/19 05:29 MCH 34.7 pg (25-34) H 02/20/19 05:29 MCHC 33.5 g/dL (32-36) 02/20/19 05:29 RDW Std Deviation 48.0 fL (36.4-46.3) H 02/20/19 05:29 RDW Coeff of Edilma 12.8 % (11.5-14.5) 02/20/19 05:29 Plt Count 192 K/uL (130-400) 02/20/19 05:29 MPV 9.5 fL (7.4-10.4) 02/20/19 05:29 Immature Gran % (Auto) 0.4 % 01/27/19 09:54 Neut % (Auto) 58.7 % 01/27/19 09:54 Lymph % (Auto) 28.4 % 01/27/19 09:54 Bleckley % (Auto) 11.3 % 01/27/19 09:54 Eos % (Auto) 1.0 % 01/27/19 09:54 Baso % (Auto) 0.2 % 01/27/19 09:54 Immature Gran # (Auto) 0.02 K/uL (0.00-0.02) 01/27/19 09:54 Neut # (Auto) 2.92 K/uL (1.4-6.5) 01/27/19 09:54 Lymph # (Auto) 1.41 K/uL (1.2-3.4) 01/27/19 09:54 Bleckley # (Auto) 0.56 K/uL (0.11-0.59) 01/27/19 09:54 Eos # (Auto) 0.05 K/uL (0-0.5) 01/27/19 09:54 Baso # (Auto) 0.01 K/uL (0-0.2) 01/27/19 09:54 PT 9.8 Seconds (9.0-12.0) 01/27/19 09:54 INR 1.0 (0.9-1.1) 01/27/19 09:54 APTT 26.5 Seconds (21.0-31.0) 01/27/19 09:54 PTT Ratio 1.0 01/27/19 09:54 Sodium 141 mmol/L (136-145) 02/20/19 05:29 Potassium 4.3 mmol/L (3.5-5.1) 02/20/19 05:29 Chloride 110 mmol/L (98-107) H 02/20/19 05:29 Carbon Dioxide 25 mmol/L (21-32) 02/20/19 05:29 Anion Gap 6.0 (3-11) 02/20/19 05:29 BUN 17 mg/dl (7-18) 02/20/19 05:29 Creatinine 1.03 mg/dl (0.6-1.2) 02/20/19 05:29 Est Cr Clr Drug Dosing 59.2 ml/min 02/20/19 05:29 Est GFR ( Amer) 62.9 02/20/19 05:29 Est GFR (Non-Af Amer) 54.3 02/20/19 05:29 BUN/Creatinine Ratio 16.8 (10-20) 02/20/19 05:29 Glucose 118 mg/dl (70-99) H 02/20/19 05:29 Estimat Average Glucose 123 mg/dl 01/27/19 09:54 Hemoglobin A1c 5.9 % (4.5-5.6) H 01/27/19 09:54 Calcium 8.4 mg/dl (8.5-10.1) L 02/20/19 05:29 Albumin 3.7 gm/dl (3.4-5.0) 01/27/19 09:54 Urine Color Yellow 01/27/19 Unknown Urine Appearance Clear (Clear) 01/27/19 Unknown Urine pH 5.5 (4.5-7.5) 01/27/19 Unknown Ur Specific Robert Lee 1.019 (1.000-1.030) 01/27/19 Unknown Urine Protein Negative (Negative) 01/27/19 Unknown Urine Glucose (UA) Negative (Negative) 01/27/19 Unknown Urine Ketones Negative (Negative) 01/27/19 Unknown Urine Blood Negative (Negative) 01/27/19 Unknown Urine Nitrite Negative (Negative) 01/27/19 Unknown Urine Bilirubin Negative (Negative) 01/27/19 Unknown Urine Urobilinogen Negative (Negative) 01/27/19 Unknown Ur Leukocyte Esterase Negative (Negative) 01/27/19 Unknown Blood Type B Positive 01/27/19 09:54 Antibody Screen NEGATIVE 01/27/19 09:54
--- NOTE | 2019-02-20 07:57 | Hospitalist Progress Note ---
Date of Service February 20, 2019 Assessment & Plan (1) Hypothyroidism: She appears clinically euthyroid last TSH was checked July 2018 and was in normal condition continue with her Synthroid (2) Asthma: She does not use her inhaler for some time has no current symptoms of asthma we will continue with clinical observation for evaluate exacerbation before she has any treatment (3) DVT prophylaxis: Surgery is chosen aspirin 81 twice daily as DVT prevention (4) Acute blood loss anemia: hgb has dropped from 14-> 11 but not in transfusion range Results & Data Vital Signs (Past 12 Hours) Vital Signs Temp Pulse Resp BP Pulse Ox 02/20/19 06:57 36.6 C 72 18 124/77 94 02/20/19 03:30 36.6 C 68 16 99/63 L 94 02/19/19 22:45 36.6 C 96 H 18 98/64 L 93 PG Care Time/CCT Total # of Minutes Spent Total Time Spent with Patient: Total time spent is greater than 50% in coordination of care (as documented) at patient's floor/unit and/or counseling patient:
[2019-02-20] MEDS: FLUTICASONE/SALMETEROL 100/50 (ADVAIR) 14 PUFF/1 INHALER INH SCH ×2 (08:21→20:11)
[2019-02-20] MEDS: FLUTICASONE PROPIONATE NA SPR 16 GM BTL SCH ×2 (08:22→20:11)
[2019-02-20] MEDS: RIVAROXABAN 10 MG TABLET PO SCH (08:23)
[2019-02-20] MEDS: PANTOprazole 40 MG TAB PO SCH (08:23)
[2019-02-20] MEDS: DOCUSATE SODIUM 100 MG CAP PO SCH ×2 (08:24→20:11)
[2019-02-20] MEDS: MULTIVITAMIN TAB PO SCH (08:24)
[2019-02-20] MEDS: CETIRIZINE HCL 10 MG TABLET PO SCH (08:24)
[2019-02-20] MEDS: CHOLECALCIFEROL 1,000 UNITS TAB PO SCH (08:24)
[2019-02-20] MEDS: SENNA 8.6 MG TAB PO SCH (20:11)
[2019-02-20] MEDS: ATORVASTATIN 10 MG TAB PO SCH (20:11)
[2019-02-21] MEDS: ACETAMINOPHEN 500 MG TAB PO SCH (05:31)
[2019-02-21] MEDS: LEVOTHYROXINE SODIUM 75 MCG TABLET PO SCH (05:32)
--- NOTE | 2019-02-21 07:44 | Orthopedic Progress Note ---
Date of Service February 21, 2019 Assessment & Plan (1) Osteoarthritis of left knee: POD 2 s/p L TKA PT/OT; WBAT DVT prophylaxis - Xarelto,SCD's,INDY's Pain management as written Planning for dc to home today w OPPT. Subjective POD 2 s/p L TKA Sitting up in bed this AM. Awake,alert. No complaints. Pain controlled. Denies SOB,CP,n/v. Physical Exam Physical Exam: Left knee silverlon dressing c/d/i, no drainage, no erythema, toes/ ankle mobile, no calf tenderness, A&Ox3. Results & Data Vital Signs (Past 12 Hours) Vital Signs Temp Pulse Resp BP Pulse Ox 02/20/19 22:55 36.7 C 74 16 104/66 96
[2019-02-21] MEDS: FLUTICASONE/SALMETEROL 100/50 (ADVAIR) 14 PUFF/1 INHALER INH SCH (08:48)
[2019-02-21] MEDS: FLUTICASONE PROPIONATE NA SPR 16 GM BTL SCH (08:48)
[2019-02-21] MEDS: MULTIVITAMIN TAB PO SCH (08:49)
[2019-02-21] MEDS: CHOLECALCIFEROL 1,000 UNITS TAB PO SCH (08:49)
[2019-02-21] MEDS: CETIRIZINE HCL 10 MG TABLET PO SCH (08:49)
[2019-02-21] MEDS: RIVAROXABAN 10 MG TABLET PO SCH (08:49)
[2019-02-21] MEDS: DOCUSATE SODIUM 100 MG CAP PO SCH (08:49)
[2019-02-21] MEDS: PANTOprazole 40 MG TAB PO SCH (08:49)
--- NOTE | 2019-02-24 17:17 | Discharge Summary ---
DISCHARGE DIAGNOSIS: Degenerative joint disease, left knee. SECONDARY DIAGNOSES: Asthma, chronic cough, osteoarthritis, gastroesophageal reflux disease, obesity. CONSULTS: Dr. Evans. COMPLICATIONS: None. PROCEDURES: Left total knee arthroplasty by Dr. Holly on 02/19/2019. BRIEF HISTORY: As dictated in the history and physical. HOSPITAL SUMMARY: The patient was admitted on the above-noted date and had the above-noted surgery performed which she tolerated well. On the first postoperative day, the patient was sitting up in bed that morning, awake and alert, no complaints. Pain was controlled. Denied shortness of breath, chest pain or lightheadedness. Dressings clean, dry and intact. Calves were soft, nontender, neurovascularly intact. Toes were mobile. Hemovac drainage was 75 mL the previous shift. Vital signs were stable. She was afebrile and hemoglobin was 11.7. She was started on physical therapy protocol and continued on DVT prophylaxis and pain management and planning for discharge to home the following day. By her second postoperative day, she continued to remain comfortable without complaints. Silverlon dressing was clean, dry and intact. No drainage, no erythema. Calves were soft, nontender. Neurovascularly intact and she was progressing with physical therapy and it was felt that she could be discharged to home with plans for outpatient PT. For further review, please see chart. LABORATORY AND X-RAY DATA: As per chart. DISCHARGE INSTRUCTIONS: The patient was discharged to home in satisfactory condition on 02/21/2019. DIET: Regular. ACTIVITY: Weightbearing as tolerated on the affected extremity. Follow TK instruction sheets and special care instructions as noted. Follow up with Dr. Holly in 2 weeks. The patient to call for appointment if one has not been made for you. DISCHARGE MEDICATIONS: Acetaminophen 1000 mg p.o. q. 8 hours, oxycodone 5 mg p.o. q. 4 hours p.r.n., Xarelto 10 mg p.o. daily. Resume home meds as listed and stop taking previous acetaminophen and ibuprofen.
== END 2019-02-21 11:00 | disposition home or self-care (01) | DRG 469 ==
LOC: ASU 06:36 → 3E 11:02

== ENCOUNTER 2019-02-24 13:01 | Inpatient (IN) ==
[2019-02-24] MEDS ORDERED: methylPREDNISolone 125 MG/2 ML VIAL IV STA (13:37)
[2019-02-24] MEDS ORDERED: SODIUM CHLORIDE 0.9% 1000ML 1,000 ML IV SCH (13:45)
[2019-02-24 13:53] LABS: iSTAT Creatinine 0.9 mg/dl (0.6-1.3); iSTAT Hemoglobin 10.5 g/dl (12.0-16.0); iSTAT Ionized Calcium 1.07 mmol/l (1.12-1.32); iSTAT Potassium 3.4 mEq/L (3.3-5.0)
[2019-02-24 13:54] LABS: Basophils # (auto) 0.02 K/uL (0-0.2); Basophils % (auto) 0.2 %; Eosinophils # (auto) 0.03 K/uL (0-0.5); Eosinophils % (auto) 0.3 %; Hematocrit (blood only) 30.1 % (37-47); Hemoglobin 10.1 g/dL (12.0-16.0); Immature Granulocytes # (auto) 0.14 K/uL (0.00-0.02); Immature Granulocytes % (auto) 1.3 %; Lymphocytes # (auto) 1.68 K/uL (1.2-3.4); Lymphocytes % (auto) 15.5 %; Mean Corpuscular Hgb Conc 33.6 g/dL (32-36); Mean Platelet Volume 9.5 fL (7.4-10.4); Monocytes # (auto) 1.06 K/uL (0.11-0.59); Monocytes % (auto) 9.8 %; Neutrophils # (auto) 7.94 K/uL (1.4-6.5); Neutrophils % (auto) 72.9 %; Nucleated RBC # (auto) 0.07 K/uL (0-0); Nucleated RBC % (auto) 0.6 %; Platelet Count 231 K/uL (130-400); RDW Coefficient of Variation 13.2 % (11.5-14.5); Red Blood Count 2.98 M/uL (4.2-5.4); White Blood Count 10.87 K/uL (4.8-10.8)
[2019-02-24 14:01] LABS: Alanine Aminotransferase 23 U/L (12-78); Albumin Level 3.3 gm/dl (3.4-5.0); Aspartate Aminotransferase 19 U/L (15-37); Blood Urea Nitrogen 13 mg/dl (7-18); Calcium 9.2 mg/dl (8.5-10.1); Carbon Dioxide 22 mmol/L (21-32); Chloride 104 mmol/L (98-107); Est GFR (African American) 67.6; Est GFR (Non-African American) 58.3; Glucose 100 mg/dl (70-99); Potassium 3.4 mmol/L (3.5-5.1); Sodium 137 mmol/L (136-145)
[2019-02-24 14:05] LABS: Partial Thromboplastin Time 25.9 Seconds (21.0-31.0); Prothrombin Time 9.9 Seconds (9.0-12.0)
[2019-02-24 14:06] LABS: Albumin Globulin Ratio 0.8 (0.9-2); Alkaline Phosphatase 61 U/L (45-117); Bilirubin,Total 1.5 mg/dl (0.2-1); Total Protein 7.3 gm/dl (6.4-8.2); Troponin I < 0.015 ng/ml (0-0.045)
--- NOTE | 2019-02-24 14:10 | XRay Report ---
XR chest 1V portable HISTORY: 73 years-old Female Dyspnea acute shortness of breath COMPARISON: Chest radiograph 04/23/2018 TECHNIQUE: Portable AP view of the chest FINDINGS: Cardiomediastinal and hilar silhouettes appear unchanged. Mild right hemidiaphragmatic elevation. Zev cific plaque of the thoracic aorta. Subsegmental bibasilar opacities are unchanged suggestive of atel ectasis/scarring. There is no pneumothorax, pleural effusion, or overt pulmonary edema. Degenerative changes of the shoulders and spine. IMPRESSION: No acute process. The above report was generated using voice recognition software. It may contain grammatical, syntax o r spelling errors. Electronically signed by: Sean Mosquera M.D. 02/24/2019 2:08 PM
[2019-02-24] MEDS ORDERED: OPTIRAY 320 125ml IV PRN (14:28)
--- NOTE | 2019-02-24 14:41 | CT Scan Report ---
CT angio chest PE protocol CT DOSE: 710.32 mGy.cm HISTORY: Dyspnea Dyspnea TECHNIQUE: Multiaxial CT images of the chest were performed following the intravenous administration of contrast to evaluate the pulmonary arteries. Maximal intensity projection images were also obtaine d. A dose lowering technique was utilized adhering to the principles of ALARA. COMPARISON STUDY: None. FINDINGS: Thoracic aorta is unremarkable. The bulk of the pulmonary vasculature enhances appropriately. There are small filling defects involvi ng the third or pulmonary vasculature. There is a small filling defect of the left upper lobe pulmona ry artery image 154. Small third order defects are identified within the right lower lobe best seen i mage 98. There is no evidence for major central pulmonary embolus. Lung parenchyma shows slight nonspecific interstitial change bilaterally. There are several right middle lobe as well as lingular nodules. These measure from 3 to 6 mm. Well-defined focal or consolidative infiltrate is not seen. IMPRESSION: 1. Study is positive for several very small peripheral pulmonary emboli. 2. These potentially are of doubtful significance clinically. 3. Nonspecific nodularity of the right middle lobe and lingula. Although possibly postinflammatory, a close three-month follow-up is suggested. 4. Nonspecific baseline interstitial change throughout both hemithoraces The above report was generated using voice recognition software. It may contain grammatical, syntax or spelling errors. Electronically signed by: Rakesh Baeza M.D. 02/24/2019 2:39 PM
[2019-02-24] MEDS ORDERED: ALBUTEROL 0.083% NEBU SOLN 3 ML VIAL NEB STA (14:54)
[2019-02-24] MEDS ORDERED: Heparin BOLUS **ED Use Only IV STA (15:05)
[2019-02-24] MEDS: HEPARIN SODIUM/DEXTROSE 25,000 UNITS/500 ML BAG IV SCH (15:21)
[2019-02-24 15:50] LABS: Appearance Urine Clear (Clear); Bilirubin Urine Negative (Negative); Blood Urine Negative (Negative); Color Urine Yellow; Glucose Urine UA Negative (Negative); Ketones Urine 1+ (Negative); Leukocyte Esterase Urine Negative (Negative); Nitrite Urine Negative (Negative); Protein Urine Negative (Negative); Specific Gravity Urine 1.014 (1.000-1.030); Urobilinogen Urine Negative (Negative); pH Urine 7.5 (4.5-7.5)
--- NOTE | 2019-02-24 16:27 | History & Physical Report ---
Date of Service February 24, 2019 Assessment & Plan (1) Bilateral pulmonary embolism: This appears to have occurred on Xarelto therapy. Now on heparin infusion. No hypoxia currently. She will be switched to a different anticoagulant this hospital stay Present on Admission?: Yes (2) Asthma exacerbation: Nebulizer treatments. Intravenous steroids. Present on Admission?: Yes (3) History of arthroplasty of left knee: Left total knee arthroplasty done last week. Consult Dr. Palm Present on Admission?: Yes (4) Adverse drug reaction: The patient believes she had a reaction to oxycodone which has been discontinued Present on Admission?: Yes (5) Hypothyroidism: Continue replacement therapy History of Present Illness Chief Complaint: Shortness of breath, wheezing Primary Care Provider: Gareth Ragsdale MD 73-year-old female with a history of asthma who has been wheezing for the past several days with nonproductive cough. She also had a left total knee arthroplasty done last week. She came to the ED for evaluation. Chest CTA reveals evidence of small bilateral PE. This occurred while she was on Xarelto. She also felt as if her exacerbation of asthma started after she took oxycodone at home. This will be discontinued. She is now on a heparin drip. She will be treated for asthma exacerbation. Orthopedic consultation has been requested. Allergies Allergy/AdvReac Type Severity Reaction Status Date / Time alendronate sodium AdvReac Mild Headache Verified 02/24/19 14:56 [From Fosamax] house dust mite AdvReac CONGESTION Verified 02/24/19 14:56 [place] Allergy Intermediate HIVES Uncoded 02/24/19 14:56 [place] Allergy Intermediate HIVES Uncoded 02/24/19 14:56 Dust Mite Extract AdvReac Mild CONGESTION Uncoded 02/24/19 14:56 Home Medications Home Medications Medication Instructions Recorded Confirmed Type Zyrtec 10 mg PO QAM 04/30/18 02/24/19 History albuterol sulfate [Proventil HFA] 1 puff INHALATION Q6H PRN 04/30/18 02/24/19 History atorvastatin 10 mg PO HS 04/30/18 02/24/19 History calcium carb-D3-mag ox-zinc ox 1 tab PO HS 04/30/18 02/24/19 History cholecalciferol (vitamin D3) 1,000 unit PO QAM 04/30/18 02/24/19 History [Vitamin D3] epinephrine [EpiPen] 0.3 mg IM Q3H PRN 04/30/18 02/24/19 History fluticasone propion-salmeterol 1 puff INHALATION BID 04/30/18 02/24/19 History [Advair Diskus] fluticasone propionate [Flonase 1 spray INTRANASAL BID 04/30/18 02/24/19 History Allergy Relief] omeprazole 40 mg capsule,delayed 40 mg PO QAM #90 cap 01/13/19 02/24/19 Rx release PreserVision AREDS-2 1 tab PO HS 01/27/19 02/24/19 History levothyroxine 75 mcg tablet 75 mcg PO QAM #30 tab 02/21/19 02/24/19 Rx oxycodone 5 mg PO Q4H PRN #30 tab 02/21/19 02/24/19 Rx acetaminophen [Tylenol Extra 1,000 mg PO Q8 PRN 02/24/19 02/24/19 History Strength] rivaroxaban [Xarelto] 10 mg PO QAM 02/24/19 02/24/19 History Past Med/Surg History Medical History Acid reflux disease (Chronic) Vitamin D deficiency (Chronic) Prediabetes (Chronic) Hypothyroidism (Chronic) Hyperlipidemia (Chronic) History of osteopenia (Chronic) Asthma INHALER PRN, TRIGGERED BY SEASONAL ALLERGIES. Environmental allergies Osteoarthritis Surgical History H/O bilateral cataract extraction H/O oral surgery ON GUMS History of bilateral tubal ligation History of breast biopsy X2--LEFT BENIGN History of colonoscopy Social History Preferred Language: [place] Communication Ability: Effective Beliefs That Will Affect Care: None marital status: Current Living Situation: Spouse Feels Safe at Home: Yes Smoking Status: Never smoker Second Hand Exposure: No Hx Alcohol Use: No Hx Substance Use: No Review of Systems Review of Systems: Constitutional-no fever or chills ENT-no blurred vision, no double vision, no epistaxis, no sore throat Respiratory-nonproductive cough, shortness of breath, wheezing Cardiac-no palpitations, no chest pain, no syncope GI-no nausea, vomiting, diarrhea, melena, hematochezia -no urinary retention, no urinary incontinence, no dysuria, no hematuria Musculoskeletal-postoperative left knee discomfort as expected. Extensive ecchymosis about the left knee surgical site Skin-no rashes, no pruritus Neuro-no isolated weakness, no paresthesia, no weakness Psych-no depression, no anxiety Physical Exam Physical Exam: General-alert and oriented x3, no fevers, no chills HEENT-head atraumatic and normocephalic, TMs intact bilaterally, pupils equal and reactive to light, extraocular muscles intact Neck-no lymphadenopathy or thyromegaly, trachea midline Chest-diminished breath sounds bilaterally. Bilateral and expiratory wheezes. No rhonchi. No inspiratory rales. No dullness to percussion Cardiac-regular rate and rhythm, normal S1 and S2, no murmurs Abdomen-normal bowel sounds, nontender, no hepatosplenomegaly Extremities-extensive swelling of the left leg postoperatively with extensive bruising about the left knee above and below the surgical site. No evidence of cellulitis or drainage from the surgical wound Neuro-cranial nerves II through XII intact, motor and sensory function within normal limits, strength symmetrical 5/5, no focal deficits Psych-normal affect, normal mood Results & Data Vital Signs (Past 12 Hours) Vital Signs Temp Pulse Pulse Resp BP Pulse Ox 02/24/19 16:00 119 H 21 144/82 H 100 02/24/19 15:26 108 H 20 100 02/24/19 15:25 106 H 17 148/92 H 100 02/24/19 15:20 104 H 02/24/19 15:12 107 H 18 93 02/24/19 14:00 100 H 32 H 91 02/24/19 13:38 103 H 32 H 100 02/24/19 13:10 115 H 28 H 100 02/24/19 13:08 36.8 C 116 H 21 121/99 100 Laboratory Results 02/24/19 13:19 02/24/19 13:19 02/24/19 13:19 02/24/19 13:19 PG Care Time/CCT Total # of Minutes Spent Total Time Spent with Patient: Total time spent is greater than 50% in coordination of care (as documented) at patient's floor/unit and/or counseling patient: (1) Asthma exacerbation Asthma persistence: unspecified Asthma severity: unspecified severity Qualified Code(s): J45.901 - Unspecified asthma with (acute) exacerbation
--- NOTE | 2019-02-24 17:30 | Emergency Department Note ---
Entered by Mamta Monreal acting as a scribe for History of Present Illness General Chief complaint: Shortness of Breath/Dyspnea Source: patient Mode of arrival: ambulatory Limitations: no limitations History of Present Illness Onset (ago): day(s) Location: chest Severity: similar to prior episodes (asthma) Pain Consistency: + other (worsening) Relieved By: + other (deep breathing) Exacerbated By: + medication (The patient states that on Sunday night, she took her prescribed oxycontin and her lungs felt like shutters. ), + movement (exertion) and + other (talking) Associated symptoms: + shortness of breath; no chest pain The patient is a 73 year old female with a history of DVT prophylaxis, asthma, ductal papillomatosis of left breast, osteoarthritis of left knee, acid reflux disease, asthma, pre-diabetes, hypothyroidism, hyperlipidemia and osteopenia who presents to the ED with complaints of constant shortness of breath that onset 5 days ago. The patient states that she had a left knee replacement on 02/19/2019. She reports that she felt fine until 02/21. The patient states that she underwent physical therapy and had what she thought was an asthma attack. She reports that she was able to control the shortness of breath with deep breathing at this time. She notes that she developed shortness of breath that she attributed to asthma. The patient states that on Sunday night, she took her prescribed oxycontin and her lungs felt like shutters. She notes that she was seen by her PCP and was given a nebulizer. The patient states that her pain is exacerbated with talking and exertion. The patient denies chest pain. She notes that she was prescribed Xarelto after her surgery and has missed 2 doses. Home Medications Home Medications Medication Instructions Recorded Confirmed Type Zyrtec 10 mg PO QAM 04/30/18 02/24/19 History albuterol sulfate [Proventil HFA] 1 puff INHALATION Q6H PRN 04/30/18 02/24/19 History atorvastatin 10 mg PO HS 04/30/18 02/24/19 History calcium carb-D3-mag ox-zinc ox 1 tab PO HS 04/30/18 02/24/19 History cholecalciferol (vitamin D3) 1,000 unit PO QAM 04/30/18 02/24/19 History [Vitamin D3] epinephrine [EpiPen] 0.3 mg IM Q3H PRN 04/30/18 02/24/19 History fluticasone propion-salmeterol 1 puff INHALATION BID 04/30/18 02/24/19 History [Advair Diskus] fluticasone propionate [Flonase 1 spray INTRANASAL BID 04/30/18 02/24/19 History Allergy Relief] omeprazole 40 mg capsule,delayed 40 mg PO QAM #90 cap 01/13/19 02/24/19 Rx release PreserVision AREDS-2 1 tab PO HS 01/27/19 02/24/19 History levothyroxine 75 mcg tablet 75 mcg PO QAM #30 tab 02/21/19 02/24/19 Rx oxycodone 5 mg PO Q4H PRN #30 tab 02/21/19 02/24/19 Rx acetaminophen [Tylenol Extra 1,000 mg PO Q8 PRN 02/24/19 02/24/19 History Strength] rivaroxaban [Xarelto] 10 mg PO QAM 02/24/19 02/24/19 History Allergies Allergy/AdvReac Type Severity Reaction Status Date / Time alendronate sodium AdvReac Mild Headache Verified 02/24/19 14:56 [From Fosamax] house dust mite AdvReac CONGESTION Verified 02/24/19 14:56 [place] Allergy Intermediate HIVES Uncoded 02/24/19 14:56 [place] Allergy Intermediate HIVES Uncoded 02/24/19 14:56 Dust Mite Extract AdvReac Mild CONGESTION Uncoded 02/24/19 14:56 Past Med/Surg History Medical History Adverse drug reaction (Acute) Bilateral pulmonary embolism (Acute) Asthma exacerbation (Acute) Acid reflux disease (Chronic) Vitamin D deficiency (Chronic) Prediabetes (Chronic) Hypothyroidism (Chronic) Hyperlipidemia (Chronic) History of osteopenia (Chronic) Asthma INHALER PRN, TRIGGERED BY SEASONAL ALLERGIES. Environmental allergies Osteoarthritis Surgical History History of arthroplasty of left knee (Acute) H/O bilateral cataract extraction H/O oral surgery ON GUMS History of bilateral tubal ligation History of breast biopsy X2--LEFT BENIGN History of colonoscopy Social History Preferred Language: Polish Communication Ability: Effective Beliefs That Will Affect Care: None marital status: Current Living Situation: Spouse Feels Safe at Home: Yes Smoking Status: Never smoker Second Hand Exposure: No Hx Alcohol Use: No Hx Substance Use: No Review of Systems See HPI for pertinent positives & negatives. and A total of 10 systems reviewed and were otherwise negative Physical Exam Vital Signs Vital Signs - 24 hr 02/24/19 12:45 02/24/19 13:08 02/24/19 13:10 Temperature 36.8 C Temperature Source Oral Sepsis Recent Fever Within 48 Hours No Sepsis New/Unexplained Change in Mental Status No Sepsis Action Taken by Nursing No Action Required Pulse Rate 116 H 115 H Pulse Rate [Finger] Pulse Rate from SpO2 Sensor 115 H 115 H Pulse Rhythm Regular Pulse Strength Normal Respiratory Rate 21 28 H Respiratory Effort / Characteristics Spontaneous Labored Spontaneous Labored Respiratory Depth Normal Normal Respiratory Pattern Rapid/Deep Tachypnea Regular Blood Pressure 121/99 Blood Pressure Mean 106 Blood Pressure Position Sitting Pulse Oximetry 100 100 Oxygen Delivery Method Room Air Room Air Oxygen Flow Rate 100 02/24/19 13:38 02/24/19 14:00 02/24/19 15:12 Temperature Temperature Source Sepsis Recent Fever Within 48 Hours Sepsis New/Unexplained Change in Mental Status Sepsis Action Taken by Nursing Pulse Rate 103 H 100 H Pulse Rate [Finger] 107 H Pulse Rate from SpO2 Sensor 95 H Pulse Rhythm Regular Pulse Strength Respiratory Rate 32 H 32 H 18 Respiratory Effort / Characteristics Spontaneous Short of Breath Respiratory Depth Respiratory Pattern Blood Pressure Blood Pressure Mean Blood Pressure Position Pulse Oximetry 100 91 93 Oxygen Delivery Method Room Air Room Air Oxygen Flow Rate 02/24/19 15:20 02/24/19 15:25 02/24/19 15:26 Temperature Temperature Source Sepsis Recent Fever Within 48 Hours Sepsis New/Unexplained Change in Mental Status Sepsis Action Taken by Nursing Pulse Rate 104 H 106 H 108 H Pulse Rate [Finger] Pulse Rate from SpO2 Sensor 106 H 108 H Pulse Rhythm Pulse Strength Respiratory Rate 17 20 Respiratory Effort / Characteristics Respiratory Depth Respiratory Pattern Blood Pressure 148/92 H Blood Pressure Mean 110 Blood Pressure Position Pulse Oximetry 100 100 Oxygen Delivery Method Oxygen Flow Rate 02/24/19 16:00 Temperature Temperature Source Sepsis Recent Fever Within 48 Hours Sepsis New/Unexplained Change in Mental Status Sepsis Action Taken by Nursing Pulse Rate 119 H Pulse Rate [Finger] Pulse Rate from SpO2 Sensor 116 H Pulse Rhythm Pulse Strength Respiratory Rate 21 Respiratory Effort / Characteristics Respiratory Depth Respiratory Pattern Blood Pressure 144/82 H Blood Pressure Mean 102 Blood Pressure Position Pulse Oximetry 100 Oxygen Delivery Method Oxygen Flow Rate GENERAL: Sitting up in bed, in mild distress. EYE EXAM: Normal conjunctiva. OROPHARYNX: no exudate, no erythema, lips, buccal mucosa, and tongue normal and mucous membranes are moist NECK: supple, no nuchal rigidity, no adenopathy, non-tender LUNGS: Clear to auscultation. Normal chest wall mechanics HEART: Tachycardic. no murmurs, S1 normal and S2 normal ABDOMEN: abdomen soft, non-tender, normo-active bowel sounds, no masses, no rebound or guarding. BACK: Back is symmetrical on inspection and there is no deformity, no midline tenderness, no CVA tenderness. SKIN: no rashes and no bruising UPPER EXTREMITIES: upper extremities are grossly normal. LOWER EXTREMITIES: No pitting edema. Bruising and swelling of left lower extremity with clean bandage over the left knee. DP 2/4. Gross sensation intact. NEURO EXAM: Normal sensorium, cranial nerves II-XII intact, normal speech, no weakness of arms, no weakness of legs. No drift. Finger to nose intact. Gross sensation intact. Course 1328: Past medical records reviewed. The patient was evaluated in room C05. A complete history and physical examination was performed. 1505: I reviewed the patient's case with Dr. Latasha Johansen - [facility]. He will evaluate the patient for further management. Consultations Consultation #1: 1505: I reviewed the patient's case with Dr. Latasha Johansen - [facility]. He will evaluate the patient for further management. Time: 15:05 Administered Medications Heparin Sodium/Dextrose (Heparin Sodium/Dextrose) 25,000 units in 500 mls @ 28 mls/hr IV .[id number] [facility]; Protocol Stop: 03/26/19 14:59 Last Admin: 02/24/19 15:21 Dose: 1,400 units/hr, 28 mls/hr Documented by: [id number] Cosigned by: [id number] Ioversol (Optiray 320 125ml) 92 ml IV ONCE PRN PRN Reason: Interaction Checking Stop: 02/28/19 14:27 Last Admin: 02/24/19 14:28 Dose: 92 ml Documented by: [id number] Discontinued Medications Albuterol (Ventolin 0.083% 2.5mg/3ml) 10 mg NEB NOW STA Stop: 02/24/19 14:55 Last Admin: 02/24/19 15:08 Dose: 10 mg Documented by: [id number] Heparin Sodium (Porcine) (Heparin Iv Bolus) 6,000 units IV NOW STA Stop: 02/24/19 15:06 Last Admin: 02/24/19 15:21 Dose: 6,000 units Documented by: [id number] Cosigned by: [id number] Heparin Sodium/Dextrose () 1 ea IV NOW STA; Protocol Stop: 02/24/19 14:55 Last Admin: 02/24/19 15:22 Dose: Not Given Documented by: [id number] Sodium Chloride (Nss 1000ml) 1,000 mls @ 999 mls/hr IV .Q1H1M SHYANNE Stop: 02/24/19 14:45 Last Infusion: 02/24/19 15:23 Dose: 0 mls/hr Documented by: [id number] Admin: 02/24/19 13:49 Dose: 999 mls/hr Documented by: [id number] Methylprednisolone (Solumedrol) 60 mg IV NOW STA Stop: 02/24/19 13:38 Last Admin: 02/24/19 13:50 Dose: 60 mg Documented by: [id number] Medical Decision Making Differential Diagnosis Differential diagnoses Pneumonia, bronchitis, COPD/Asthma exacerbation, pneumothorax, pulmonary embolism, congestive heart failure, acute coronary syndrome as well as other etiologies were entertained. Medical Records Attestation: I reviewed the patient's medical records. Home Medications Current Medication List: was personally reviewed by me Laboratory Data Attestation: I reviewed the patient's lab results. Result diagrams: 02/24/19 13:19 02/24/19 13:19 Lab Results 02/24/19 02/24/19 02/24/19 Range/Units 13:19 13:19 13:19 WBC 10.87 H (4.8-10.8) K/uL RBC 2.98 L (4.2-5.4) M/uL Hgb 10.1 L (12.0-16.0) g/dL POC Hgb (12.0-16.0) g/dl Hct 30.1 L (37-47) % POC Hct (37-47) % MCV 101.0 H (80-100) fL MCH 33.9 (25-34) pg MCHC 33.6 (32-36) g/dL RDW Std Deviation 48.0 H (36.4-46.3) fL RDW Coeff of Edilma 13.2 (11.5-14.5) % Plt Count 231 (130-400) K/uL MPV 9.5 (7.4-10.4) fL Immature Gran % (Auto) 1.3 % Neut % (Auto) 72.9 % Lymph % (Auto) 15.5 % Sully % (Auto) 9.8 % Eos % (Auto) 0.3 % Baso % (Auto) 0.2 % Immature Gran # (Auto) 0.14 H (0.00-0.02) K/uL Neut # (Auto) 7.94 H (1.4-6.5) K/uL Lymph # (Auto) 1.68 (1.2-3.4) K/uL Sully # (Auto) 1.06 H (0.11-0.59) K/uL Eos # (Auto) 0.03 (0-0.5) K/uL Baso # (Auto) 0.02 (0-0.2) K/uL Absolute Nucleated RBC 0.07 H (0-0) K/uL Nucleated RBC % (auto) 0.6 % PT 9.9 (9.0-12.0) Seconds INR 1.0 (0.9-1.1) APTT 25.9 (21.0-31.0) Seconds PTT Ratio 1.0 POC Sodium (135-144) mEq/L Sodium 137 (136-145) mmol/L POC Potassium (3.3-5.0) mEq/L Potassium 3.4 L (3.5-5.1) mmol/L POC Chloride (101-112) mEq/L Chloride 104 (98-107) mmol/L Carbon Dioxide 22 (21-32) mmol/L POC Total CO2 (24-31) mEq/l Anion Gap 11.0 (3-11) POC Anion Gap (16-25) mmol/L POC BUN (7-18) mg/dl BUN 13 (7-18) mg/dl Creatinine 0.97 (0.6-1.2) mg/dl POC Creatinine (0.6-1.3) mg/dl Est Cr Clr Drug Dosing 64.0 ml/min Est GFR ( Amer) 67.6 Est GFR (Non-Af Amer) 58.3 BUN/Creatinine Ratio 13.0 (10-20) Glucose 100 H (70-99) mg/dl POC Glucose (other) (70-99) mg/dl Calcium 9.2 (8.5-10.1) mg/dl POC Ioniz Calcium Bobby (1.12-1.32) mmol/l Total Bilirubin 1.5 H (0.2-1) mg/dl AST 19 (15-37) U/L ALT 23 (12-78) U/L Alkaline Phosphatase 61 (45-117) U/L Troponin I < 0.015 (0-0.045) ng/ml Total Protein 7.3 (6.4-8.2) gm/dl Albumin 3.3 L (3.4-5.0) gm/dl Globulin 4.0 (2.5-4.0) gm/dl Albumin/Globulin Ratio 0.8 L (0.9-2) Urine Color Urine Appearance (Clear) Urine pH (4.5-7.5) Ur Specific [place] (1.000-1.030) Urine Protein (Negative) Urine Glucose (UA) (Negative) Urine Ketones (Negative) Urine Blood (Negative) Urine Nitrite (Negative) Urine Bilirubin (Negative) Urine Urobilinogen (Negative) Ur Leukocyte Esterase (Negative) 02/24/19 02/24/19 Range/Units 13:40 15:30 WBC (4.8-10.8) K/uL RBC (4.2-5.4) M/uL Hgb (12.0-16.0) g/dL POC Hgb 10.5 L (12.0-16.0) g/dl Hct (37-47) % POC Hct 31 L (37-47) % MCV (80-100) fL MCH (25-34) pg MCHC (32-36) g/dL RDW Std Deviation (36.4-46.3) fL RDW Coeff of Edilma (11.5-14.5) % Plt Count (130-400) K/uL MPV (7.4-10.4) fL Immature Gran % (Auto) % Neut % (Auto) % Lymph % (Auto) % Sully % (Auto) % Eos % (Auto) % Baso % (Auto) % Immature Gran # (Auto) (0.00-0.02) K/uL Neut # (Auto) (1.4-6.5) K/uL Lymph # (Auto) (1.2-3.4) K/uL Sully # (Auto) (0.11-0.59) K/uL Eos # (Auto) (0-0.5) K/uL Baso # (Auto) (0-0.2) K/uL Absolute Nucleated RBC (0-0) K/uL Nucleated RBC % (auto) % PT (9.0-12.0) Seconds INR (0.9-1.1) APTT (21.0-31.0) Seconds PTT Ratio POC Sodium 136 (135-144) mEq/L Sodium (136-145) mmol/L POC Potassium 3.4 (3.3-5.0) mEq/L Potassium (3.5-5.1) mmol/L POC Chloride 102 (101-112) mEq/L Chloride (98-107) mmol/L Carbon Dioxide (21-32) mmol/L POC Total CO2 21 L (24-31) mEq/l Anion Gap (3-11) POC Anion Gap 18.0 (16-25) mmol/L POC BUN 11 (7-18) mg/dl BUN (7-18) mg/dl Creatinine (0.6-1.2) mg/dl POC Creatinine 0.9 (0.6-1.3) mg/dl Est Cr Clr Drug Dosing ml/min Est GFR ( Amer) Est GFR (Non-Af Amer) BUN/Creatinine Ratio (10-20) Glucose (70-99) mg/dl POC Glucose (other) 102 H (70-99) mg/dl Calcium (8.5-10.1) mg/dl POC Ioniz Calcium Bobby 1.07 L (1.12-1.32) mmol/l Total Bilirubin (0.2-1) mg/dl AST (15-37) U/L ALT (12-78) U/L Alkaline Phosphatase (45-117) U/L Troponin I (0-0.045) ng/ml Total Protein (6.4-8.2) gm/dl Albumin (3.4-5.0) gm/dl Globulin (2.5-4.0) gm/dl Albumin/Globulin Ratio (0.9-2) Urine Color Yellow Urine Appearance Clear (Clear) Urine pH 7.5 (4.5-7.5) Ur Specific [place] 1.014 (1.000-1.030) Urine Protein Negative (Negative) Urine Glucose (UA) Negative (Negative) Urine Ketones 1+ H (Negative) Urine Blood Negative (Negative) Urine Nitrite Negative (Negative) Urine Bilirubin Negative (Negative) Urine Urobilinogen Negative (Negative) Ur Leukocyte Esterase Negative (Negative) Imaging Data Radiologist's Impression: Radiology results as stated below per my review and the radiologist's interpretation: XR chest 1V portable HISTORY: 73 years-old Female Dyspnea acute shortness of breath COMPARISON: Chest radiograph 04/23/2018 TECHNIQUE: Portable AP view of the chest FINDINGS: Cardiomediastinal and hilar silhouettes appear unchanged. Mild right hemidiaphragmatic elevation. Calcific plaque of the thoracic aorta. Subsegmental bibasilar opacities are unchanged suggestive of atelectasis/scarring. There is no pneumothorax, pleural effusion, or overt pulmonary edema. Degenerative changes of the shoulders and spine. IMPRESSION: No acute process. The above report was generated using voice recognition software. It may contain grammatical, syntax or spelling errors. Electronically signed by: Sean Mosquera M.D. 02/24/2019 2:08 PM Dictated: 02/24/19 1407 Transcribed: 02/24/[address] angio chest PE protocol CT DOSE: 710.32 mGy.cm HISTORY: Dyspnea Dyspnea TECHNIQUE: Multiaxial CT images of the chest were performed following the intravenous administration of contrast to evaluate the pulmonary arteries. Maximal intensity projection images were also obtained. A dose lowering technique was utilized adhering to the principles of ALARA. COMPARISON STUDY: None. FINDINGS: Thoracic aorta is unremarkable. The bulk of the pulmonary vasculature enhances appropriately. There are small filling defects involving the third or pulmonary vasculature. There is a small filling defect of the left upper lobe pulmonary artery image 154. Small third order defects are identified within the right lower lobe best seen image 98. There is no evidence for major central pulmonary embolus. Lung parenchyma shows slight nonspecific interstitial change bilaterally. There are several right middle lobe as well as lingular nodules. These measure from 3 to 6 mm. Well-defined focal or consolidative infiltrate is not seen. IMPRESSION: 1. Study is positive for several very small peripheral pulmonary emboli. 2. These potentially are of doubtful significance clinically. 3. Nonspecific nodularity of the right middle lobe and lingula. Although possibly postinflammatory, a close three-month follow-up is suggested. 4. Nonspecific baseline interstitial change throughout both hemithoraces The above report was generated using voice recognition software. It may contain grammatical, syntax or spelling errors. Electronically signed by: Rakesh Baeza M.D. 02/24/2019 2:39 PM Dictated: 02/24/19 1430 Transcribed: 02/24/19 1430 ECG Data Attestation: I personally reviewed and interpreted this ECG as follows: Indication: SOB/dyspnea Rate (beats per minute): 112 Rhythm: sinus tachycardia Findings: + PVC, + T-wave inversion (lead 3) and + left axis deviation Blood Pressure Blood Pressure Findings: Normal blood pressure MDM Narrative Patient is a 73-year-old female who presents the ER for shortness of breath which is been worsening since this past Sunday. Patient had left knee surgery on Sunday has been doing okay. She is taking a 10 a inhibitor but has missed several doses. Upon arrival she is dyspneic with conversation. Vital show that she is tachycardic in the low 100s. She does have a history of asthma as well. IV was established blood work was obtained. Labs show a mild leukocytosis at 10.8 thousand. Hemoglobin of 10. Platelets were normal at 231. INR was unremarkable. BMP with mild hypokalemia. LFTs are unremarkable. T bili was slightly elevated at 1.5. UA was negative. Patient was given IV fluids. CT PE confirms small bilateral PEs. Do not think that they are causing her dyspnea with exertion as she becomes extremely tachypneic. Patient was already given steroids and was given an hour-long neb treatment. She was given a heparin drip and bolus as well and was updated bedside. Discussed with the hospitalist for admission. Impression & Plan Bilateral pulmonary embolism, Asthma exacerbation, SOB (shortness of breath), Anemia, Hypokalemia Critical Care Time Critical Care Time: Yes (35) Total Critical Care Time: 35 I have personally spent 35 minutes of critical care time in the direct management of this patient. This includes bedside care, interpretation of diagnostic studies, and testing, discussion with consultants, patient, and family members, and other required patient management activities. This 35 minutes is in excess of all separately billable procedures. Discharge Plan Visit Data Chief Complaint: Shortness of Breath/Dyspnea ED Provider: Rolando Hadley Discharge Problem: Bilateral pulmonary embolism, Asthma exacerbation, SOB (shortness of breath), Anemia, Hypokalemia Patient Disposition: Being Evaluated by Hospitalist Forms Stand Alone Forms: [facility] Prescriptions Prescriptions: No Action omeprazole 40 mg capsule,delayed release(DR/EC) 40 mg PO QAM Qty: 90 RF: 1 levothyroxine 75 mcg tablet 75 mcg PO QAM Qty: 30 RF: 5 PreserVision AREDS-2 [id number] Capsule 1 tab PO HS RF: 0 oxycodone 5 mg Tablet 5 mg PO Q4H PRN (Reason: pain) Qty: 30 RF: 0 atorvastatin 10 mg Tablet 10 mg PO HS RF: 0 epinephrine [EpiPen] 0.3 mg/0.3 mL Auto-Injector 0.3 mg IM Q3H PRN (Reason: Allergic Reaction) RF: 0 fluticasone propion-salmeterol [Advair Diskus] 100-50 mcg/dose Blister With Device 1 puff INHALATION BID RF: 0 albuterol sulfate [Proventil HFA] 90 mcg/actuation Hfa Aerosol Inhaler 1 puff INHALATION Q6H PRN (Reason: Shortness Of Breath Or Wheezing) RF: 0 fluticasone propionate [Flonase Allergy Relief] 50 mcg/actuation Dequincy,Suspension 1 spray INTRANASAL BID RF: 0 cholecalciferol (vitamin D3) [Vitamin D3] 1,000 unit Capsule 1,000 unit PO QAM RF: 0 Zyrtec 10 mg Capsule 10 mg PO QAM RF: 0 calcium carb-D3-mag ox-zinc ox 333 mg-133 unit -133 mg-5 mg Tablet 1 tab PO HS RF: 0 acetaminophen [Tylenol Extra Strength] 500 mg tablet 1,000 mg PO Q8 PRN (Reason: Pain) RF: 0 Xarelto 10 mg tablet 10 mg PO QAM RF: 0 Referrals Referrals: Gareth Ragsdale MD [Primary Care Provider] - Discharge Problem: Asthma exacerbation Qualifiers: Asthma severity: unspecified severity Asthma persistence: unspecified Qualified Code(s): J45.901 - Unspecified asthma with (acute) exacerbation Anemia Qualifiers: Anemia type: unspecified type Qualified Code(s): D64.9 - Anemia, unspecified The scribe's documentation has been prepared under my direction and personally reviewed by me in its entirety. I confirm that the note above accurately reflects all work, treatment, procedures, and medical decision making performed by me.
[2019-02-24] MEDS ORDERED: ONDANSETRON INJ 2 MG/ML 2 ML VIAL IV PRN (18:01)
[2019-02-24] MEDS ORDERED: ALUMINUM/MAGNESIUM SUSP 30 ML UDC PO PRN (18:01)
[2019-02-24] MEDS ORDERED: ACETAMINOPHEN 500 MG TAB PO PRN (18:01)
[2019-02-24] MEDS: BUDESONIDE 0.5 MG/2 ML VIAL (PULMICORT) NEB SCH (19:27)
[2019-02-24] MEDS: ARFORMOTEROL TART 15MCG/2ML VIAL INH SCH (19:27)
[2019-02-24] MEDS: ACETAMINOPHEN 325 MG TAB PO PRN (19:54)
[2019-02-24] MEDS: CEROVITE ADV FORMULA TAB PO SCH (20:42)
[2019-02-24] MEDS: ATORVASTATIN 10 MG TAB PO SCH (20:42)
[2019-02-24] MEDS: methylPREDNISolone 40 MG in SYRINGE 0 ML IV SCH (20:42)
[2019-02-24] MEDS: CALCIUM 600MG + VIT D 400 IU TAB PO SCH (20:42)
[2019-02-24] MEDS: FLUTICASONE PROPIONATE NA SPR 16 GM BTL NAE SCH (20:42)
[2019-02-24 22:09] LABS: Partial Thromboplastin Ratio 2.1
[2019-02-24 22:30] LABS: Partial Thromboplastin Time 55.7 Seconds (21.0-31.0)
[2019-02-25] MEDS: ACETAMINOPHEN 325 MG TAB PO PRN ×3 (00:31→20:11)
[2019-02-25] MEDS: methylPREDNISolone 40 MG in SYRINGE 0 ML IV SCH ×2 (06:22→17:16)
[2019-02-25] MEDS: LEVOTHYROXINE SODIUM 75 MCG TABLET PO SCH (06:22)
[2019-02-25 07:03] LABS: Partial Thromboplastin Ratio 2.6
[2019-02-25 07:07] LABS: Partial Thromboplastin Time 71.7 Seconds (21.0-31.0)
[2019-02-25] MEDS: BUDESONIDE 0.5 MG/2 ML VIAL (PULMICORT) NEB SCH ×2 (07:15→19:12)
[2019-02-25] MEDS: ARFORMOTEROL TART 15MCG/2ML VIAL INH SCH ×2 (07:15→19:12)
--- NOTE | 2019-02-25 07:41 | Orthopedic Progress Note ---
Date of Service February 25, 2019 Assessment & Plan (1) History of arthroplasty of left knee: Pulmonary emboli despite being on Xarelto status post left total knee replacement. Patient has no significant pain doing well despite some moderate swelling in her left leg. I would recommend keeping the Silverlon dressing in place and when she is discharged home she can remove it. Typically remove this in 1 week which will be around the time of her discharge. Continue on anticoagulation of choice per medical team. Would recommend if she goes on Coumadin that she be therapeutic prior to resuming physical therapy. She is doing fine now with her range of motion and can be weightbearing as tolerated active as tolerated on her left knee with walker support as needed while she is in the hospital and do range of motion of her knee as tolerated without any formal physical therapy. Subjective Patient was in therapy on Sunday felt short of breath like she was having an asthma attack and was evaluated by primary care referred to [facility] had a CT scan which demonstrated bilateral small pulmonary emboli. Patient has no shortness of breath is comfortable her knee feels fine, she is denies any calf pain Review of Systems Review of Systems: Other than being mildly short of breath review of systems are noncontributory Physical Exam Physical Exam: Right knee exam normal no swelling right leg no calf tenderness negative Homans. Left leg more swelling than right with chronic ecchymosis but the skin is starting to wrinkle consistent with the swelling coming down. She has no calf tenderness negative Homans she has 0 through 100 degrees range of motion. She has a Silverlon dressing over the incision. Results & Data Vital Signs (Past 12 Hours) Vital Signs Temp Pulse Resp BP Pulse Ox 02/25/19 07:19 91 H 18 98 02/25/19 07:02 36.4 C L 90 18 121/68 95 02/25/19 04:24 36.4 C L 84 18 109/68 97 02/25/19 00:21 36.8 C 97 H 18 105/60 97
[2019-02-25] MEDS: PANTOprazole 40 MG TAB PO SCH (08:18)
[2019-02-25] MEDS: CETIRIZINE HCL 10 MG TABLET PO SCH (08:18)
[2019-02-25] MEDS: FLUTICASONE PROPIONATE NA SPR 16 GM BTL NAE SCH ×2 (08:18→20:09)
[2019-02-25] MEDS: CHOLECALCIFEROL 1,000 UNITS TAB PO SCH (08:18)
[2019-02-25] MEDS: HEPARIN SODIUM/DEXTROSE 25,000 UNITS/500 ML BAG IV SCH (08:21)
[2019-02-25 08:45] LABS: Hematocrit (blood only) 27.4 % (37-47); Hemoglobin 8.9 g/dL (12.0-16.0); Mean Corpuscular Hgb Conc 32.5 g/dL (32-36); Mean Corpuscular Volume 104.2 fL (80-100); Mean Platelet Volume 9.5 fL (7.4-10.4); Platelet Count 248 K/uL (130-400); RDW Coefficient of Variation 13.4 % (11.5-14.5); RDW Standard Deviation 50.6 fL (36.4-46.3); Red Blood Count 2.63 M/uL (4.2-5.4); White Blood Count 11.36 K/uL (4.8-10.8)
[2019-02-25 08:54] LABS: Potassium 4.1 mmol/L (3.5-5.1)
[2019-02-25 08:55] LABS: BUN Creatinine Ratio 15.9 (10-20); Calcium 8.9 mg/dl (8.5-10.1); Creatinine Clr Calc Pharmacy 77.6 ml/min; Magnesium 2.6 mg/dl (1.8-2.4)
--- NOTE | 2019-02-25 10:47 | Ultrasound Report ---
ULTRASOUND BILATERAL LOWER EXTREMITY VENOUS CLINICAL HISTORY: Pulmonary embolus. COMPARISON STUDY: Left lower extremity venous ultrasound dated 12/03/2018. TECHNIQUE: Real-time, grayscale, and color Doppler sonography of the deep veins of the right and left lower extremity was performed from the inguinal crease to the calf. Compression and augmentation wer e utilized. FINDINGS: There is no sonographic evidence of deep venous thrombosis identified in the right or left lower extremity. The common femoral, superficial femoral, and popliteal veins are patent and normally compressible bilaterally. The greater saphenous vein and the profunda femoris vein at the junction w ith the common femoral vein are clear in both legs. The visualized calf veins are patent bilaterally. IMPRESSION: There is no sonographic evidence of deep venous thrombosis identified in the right or lef t lower extremity. Electronically signed by: Omar Garg M.D. 02/25/2019 10:46 AM
[2019-02-25 15:12] LABS: Partial Thromboplastin Ratio 2.1
[2019-02-25 15:15] LABS: Partial Thromboplastin Time 57.5 Seconds (21.0-31.0)
--- NOTE | 2019-02-25 16:00 | Hospitalist Progress Note ---
Date of Service February 25, 2019 Assessment & Plan (1) Bilateral pulmonary embolism: - Provoked following recent surgery; several very small PEs noted on admission CT chest. - Venous doppler was negative for DVTs. - Echo with preserved EF, no evidence of right heart strain. - Pt. previously on Xarelto 10 mg daily for DVT prevention post op (Xarelto has been evaluated in obese patients, failed in some studies); will convert Heparin drip to Eliquis 10 mg BID x 7 days followed by 5 mg BID this evening. - Hemodynamically stable, will continue to monitor on telemetry. (2) Asthma exacerbation: - Very mild asthma exacerbation - improving overall. - Decrease Solu-medrol to 40 mg IV q12hr. - Pulmicort BID with Brovana BID scheduled. - Holding home inhalers. (3) History of arthroplasty of left knee: - S/p Left TKA on 02/19/19. - Ortho consulted, appreciate input. - WBAT on left knee; resume PT at discharge. (4) Hypothyroidism: - Continue Levothyroxine 75 mcg daily. - Most recent TSH was 1.7 in Jul 2018. (5) Hyperlipidemia: - Continue statin as prescribed. (6) History of osteopenia: - Continue Vit D replacement. 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 (8) Pulmonary nodule: Pulmonary nodules noted on the right on CT of the chest -Needs imaging follow-up as per guidelines and pulmonary follow-up as an outpatient (9) Macrocytic anemia: Has macrocytosis for several years, anemia more recent likely secondary to recent knee surgery B12 levels not low 6 months ago -Check B12, folate, reticulocyte count Follow as an outpatient (10) Acid reflux disease: - PPI daily. Dispo: PCU/tele; discharge likely on 02/26. Supervising Physician Co-Signing Physician Notes PA Supervision Note: I did not personally see or examine the patient today, but I verified all lopez points of LALITA Sandra's assessment and plan with the following exceptions/additions: None Subjective Pt. is feeling well overall. Denies pleuritic chest pain, generalized chest pain. Shortness of breath now improved; ambulated to bathroom without difficulty. Has mild wheezing. Plan to convert Heparin drip to Eliquis this evening. Review of Systems Review of Systems: All systems reviewed & are unremarkable except as noted in HPI & below Constitutional: no fever, no chills, no fatigue and no weakness Respiratory: + wheezing; no cough, no dyspnea and no dyspnea on exertion Cardiovascular: no chest pain, no palpitations, no lightheadedness and no edema Gastrointestinal: no abdominal pain, no nausea and no constipation Genitourinary: no difficulty urinating Musculoskeletal: no back pain and no joint pain Integumentary: no non-healing lesions Physical Exam Physical Exam: General: Resting comfortably HEENT: NC/AT; PERRLA with EOMI; [place] conjunctiva, MMM. No erythema of posterior pharynx Neck: Supple and nontender Cardiac: RRR Lungs: CTA bilaterally Abdomen: Bowel normoactive X 4; Nontender to palpation Extremities: Warm. No edema present Neuro: No focal weakness Skin: No rash Results & Data Vital Signs (Past 12 Hours) Vital Signs Temp Pulse Resp BP Pulse Ox 02/25/19 12:25 96 02/25/19 12:11 36.5 C 90 18 119/66 96 02/25/19 07:19 91 H 18 98 02/25/19 07:02 36.4 C L 90 18 121/68 95 02/25/19 04:24 36.4 C L 84 18 109/68 97 Laboratory Results 02/25/19 02/25/19 02/25/19 Range/Units 14:32 06:23 05:23 WBC (4.8-10.8) K/uL RBC (4.2-5.4) M/uL Hgb (12.0-16.0) g/dL Hct (37-47) % MCV (80-100) fL MCH (25-34) pg MCHC (32-36) g/dL RDW Std Deviation (36.4-46.3) fL RDW Coeff of Edilma (11.5-14.5) % Plt Count (130-400) K/uL MPV (7.4-10.4) fL APTT 57.5 H* 71.7 H* (21.0-31.0) Seconds PTT Ratio 2.1 2.6 Sodium 142 (136-145) mmol/L Potassium 4.1 D (3.5-5.1) mmol/L Chloride 110 H (98-107) mmol/L Carbon Dioxide 27 (21-32) mmol/L Anion Gap 6.0 (3-11) BUN 12 (7-18) mg/dl Creatinine 0.78 (0.6-1.2) mg/dl Est Cr Clr Drug Dosing 77.6 ml/min Est GFR ( Amer) 88.0 Est GFR (Non-Af Amer) 76.0 BUN/Creatinine Ratio 15.9 (10-20) Glucose 162 H (70-99) mg/dl Calcium 8.9 (8.5-10.1) mg/dl Magnesium 2.6 H (1.8-2.4) mg/dl 02/25/19 02/24/19 Range/Units 05:23 21:24 WBC 11.36 H (4.8-10.8) K/uL RBC 2.63 L (4.2-5.4) M/uL Hgb 8.9 L (12.0-16.0) g/dL Hct 27.4 L (37-47) % MCV 104.2 H (80-100) fL MCH 33.8 (25-34) pg MCHC 32.5 (32-36) g/dL RDW Std Deviation 50.6 H (36.4-46.3) fL RDW Coeff of Edilma 13.4 (11.5-14.5) % Plt Count 248 (130-400) K/uL MPV 9.5 (7.4-10.4) fL APTT 55.7 H* (21.0-31.0) Seconds PTT Ratio 2.1 Sodium (136-145) mmol/L Potassium (3.5-5.1) mmol/L Chloride (98-107) mmol/L Carbon Dioxide (21-32) mmol/L Anion Gap (3-11) BUN (7-18) mg/dl Creatinine (0.6-1.2) mg/dl Est Cr Clr Drug Dosing ml/min Est GFR ( Amer) Est GFR (Non-Af Amer) BUN/Creatinine Ratio (10-20) Glucose (70-99) mg/dl Calcium (8.5-10.1) mg/dl Magnesium (1.8-2.4) mg/dl PG Care Time/CCT Total # of Minutes Spent Total Time Spent with Patient: Total time spent is greater than 50% in coordination of care (as documented) at patient's floor/unit and/or counseling patient: (1) Asthma exacerbation Asthma persistence: unspecified Asthma severity: unspecified severity Qualified Code(s): J45.901 - Unspecified asthma with (acute) exacerbation
[2019-02-25] MEDS ORDERED: [UNRECOGNIZED DRUG - REMARK] ONE (20:00)
[2019-02-25] MEDS: ATORVASTATIN 10 MG TAB PO SCH (20:06)
[2019-02-25] MEDS: APIXABAN 5 MG TABLET PO SCH (20:06)
[2019-02-25] MEDS: CEROVITE ADV FORMULA TAB PO SCH (20:06)
[2019-02-25] MEDS: CALCIUM 600MG + VIT D 400 IU TAB PO SCH (20:07)
[2019-02-26] MEDS: ACETAMINOPHEN 325 MG TAB PO PRN ×2 (02:10→10:41)
[2019-02-26] MEDS: LEVOTHYROXINE SODIUM 75 MCG TABLET PO SCH (05:46)
[2019-02-26] MEDS: methylPREDNISolone 40 MG in SYRINGE 0 ML IV SCH (05:47)
[2019-02-26 06:22] LABS: Hematocrit (blood only) 26.9 % (37-47); Hemoglobin 8.8 g/dL (12.0-16.0); Mean Corpuscular Hgb Conc 32.7 g/dL (32-36); Mean Corpuscular Volume 103.9 fL (80-100); Mean Platelet Volume 9.5 fL (7.4-10.4); Nucleated RBC # (auto) 0.07 K/uL (0-0); Nucleated RBC % (auto) 0.4 %; Platelet Count 245 K/uL (130-400); RDW Coefficient of Variation 13.8 % (11.5-14.5); RDW Standard Deviation 51.6 fL (36.4-46.3); Red Blood Count 2.59 M/uL (4.2-5.4); White Blood Count 16.74 K/uL (4.8-10.8)
[2019-02-26 06:55] LABS: BUN Creatinine Ratio 25.2 (10-20); Calcium 8.9 mg/dl (8.5-10.1); Creatinine Clr Calc Pharmacy 77.6 ml/min
[2019-02-26] MEDS: ARFORMOTEROL TART 15MCG/2ML VIAL INH SCH (07:01)
[2019-02-26] MEDS: BUDESONIDE 0.5 MG/2 ML VIAL (PULMICORT) NEB SCH (07:01)
[2019-02-26] MEDS: CHOLECALCIFEROL 1,000 UNITS TAB PO SCH (07:53)
[2019-02-26] MEDS: FLUTICASONE PROPIONATE NA SPR 16 GM BTL NAE SCH (07:53)
[2019-02-26] MEDS: PANTOprazole 40 MG TAB PO SCH (07:54)
[2019-02-26] MEDS: CETIRIZINE HCL 10 MG TABLET PO SCH (07:54)
[2019-02-26] MEDS: APIXABAN 5 MG TABLET PO SCH (07:54)
[2019-02-26 07:57] LABS: Reticulocyte % 5.2 % (0.5-2.0); Reticulocytes # 0.15 10^6/uL (0.02-0.10)
[2019-02-26 08:41] LABS: Folate (Folic Acid) 17.78 ng/ml (>5.38)
[2019-02-26 09:00] LABS: Albumin Level 3.3 gm/dl (3.4-5.0); Bilirubin Direct 0.2 mg/dl (0-0.2); Bilirubin,Total 0.9 mg/dl (0.2-1); Total Protein 7.1 gm/dl (6.4-8.2)
[2019-02-26] MEDS ORDERED: predniSONE 20 MG TAB PO SCH (12:00)
--- NOTE | 2019-02-26 14:28 | Discharge Summary ---
Date of Service February 26, 2019 Admission HPI Per Admitting Provider 73-year-old female with a history of asthma who has been wheezing for the past several days with nonproductive cough. She also had a left total knee arthroplasty done last week. She came to the ED for evaluation. Chest CTA reveals evidence of small bilateral PE. This occurred while she was on Xarelto. She also felt as if her exacerbation of asthma started after she took oxycodone at home. This will be discontinued. She is now on a heparin drip. She will be treated for asthma exacerbation. Orthopedic consultation has been requested. Admission Exam Per Admitting Provider General-alert and oriented x3, no fevers, no chills HEENT-head atraumatic and normocephalic, TMs intact bilaterally, pupils equal and reactive to light, extraocular muscles intact Neck-no lymphadenopathy or thyromegaly, trachea midline Chest-diminished breath sounds bilaterally. Bilateral and expiratory wheezes. No rhonchi. No inspiratory rales. No dullness to percussion Cardiac-regular rate and rhythm, normal S1 and S2, no murmurs Abdomen-normal bowel sounds, nontender, no hepatosplenomegaly Extremities-extensive swelling of the left leg postoperatively with extensive bruising about the left knee above and below the surgical site. No evidence of cellulitis or drainage from the surgical wound Neuro-cranial nerves II through XII intact, motor and sensory function within normal limits, strength symmetrical 5/5, no focal deficits Psych-normal affect, normal mood Principal Diagnosis Bilateral PEs Discharge Exam General: Resting comfortably HEENT: NC/AT; PERRLA with EOMI; [place] conjunctiva, MMM. No erythema of posterior pharynx Neck: Supple and nontender Cardiac: RRR Lungs: CTA bilaterally Abdomen: Bowel normoactive X 4; Nontender to palpation Extremities: Warm. No edema present Neuro: No focal weakness Skin: No rash Discharge Data Allergies Allergy/AdvReac Type Severity Reaction Status Date / Time alendronate sodium AdvReac Mild Headache Verified 02/24/19 14:56 [From Fosamax] house dust mite AdvReac CONGESTION Verified 02/24/19 14:56 [place] Allergy Intermediate HIVES Uncoded 02/24/19 14:56 [place] Allergy Intermediate HIVES Uncoded 02/24/19 14:56 Dust Mite Extract AdvReac Mild CONGESTION Uncoded 02/24/19 14:56 Consultations 02/24/19 15:08 ED Decision to Admit Stat 02/24/19 18:01 Consult Orthopedic Surgery Routine Ordered Studies 02/24/19 13:38 CT angio chest PE protocol Stat CXR 02/25/19 08:00 US venous doppler LE Routine Hospital Course (1) Bilateral pulmonary embolism: Provoked following recent surgery; several very small PEs noted on admission CT chest. Venous doppler was negative for DVTs. Echo with preserved EF, no evidence of right heart strain. Pt. previously on Xarelto 10 mg daily for DVT prevention post op (Xarelto has been evaluated in obese patients, failed in some studies); converted Heparin drip to Eliquis 10 mg BID x 7 days followed by 5 mg BID. Hemodynamically stable, NSR on monitor. Will need to f/u with PCP as outpatient. Would recommend likely 3 months of anticoagulation therapy (2) Asthma exacerbation: Very mild asthma exacerbation - now improved. Received Solu-medrol IV during admission; will convert to PO Prednisone taper at discharge. Pulmicort BID with Brovana BID scheduled. Resume home inhalers at discharge. (3) History of arthroplasty of left knee: S/p Left TKA on 02/19/19. Ortho consulted, appreciate input. WBAT on left knee; resume PT at discharge. (4) Hypothyroidism: Continued Levothyroxine 75 mcg daily. Most recent TSH was 1.7 in Jul 2018. (5) Hyperlipidemia: Continued statin as prescribed. (6) History of osteopenia: Continued Vit D replacement. 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 (8) Pulmonary nodule: Pulmonary nodules noted on the right on CT of the chest Needs imaging follow-up as per guidelines and pulmonary follow-up as an outpatient (9) Macrocytic anemia: Has macrocytosis for several years, anemia more recent likely secondary to recent knee surgery. B12 and Folate levels WNL. Reticulocyte count very elevated currently, but could be high in setting of recent blood loss anemia Recent Cologuard test completed -- will need to f/u results. Script provided for outpatient labs in 2 days to monitor H/H. -Recommend follow up with Hematology as an outpt for persistent macrocytosis (10) Elevated BUN: Increased on day of discharge. No evidence of bleeding. Encouraged PO fluid intake. Script provided for outpatient labs in 2 days to monitor renal function. (11) Acid reflux disease: PPI daily. Pt. was stable for discharge to home on 02/26/19. Total Time Total Time Spent Total Time Spent (In Minutes): >30 minutes Total Time Includes: Examination of the Patient, Discharge Planning, Medication Reconciliation, Communication With Other Providers and Other Discharge Plan Discharge Items Patient Disposition: Home - Self-Care Reason For Visit: EXACERBATION ASTHMA,BILATERAL PE Discharge Diagnosis: Bilateral PEs, Asthma Exacerbation Condition: Good Discharge Goals: Decrease discomfort, Improve disease control, Improve function, Increase independence and Prevent disease Activity: As commented below Exercise/Sports: Wait until after follow-up appointment Non-emergency contact: Primary Care Provider and Surgeon Call non-emergency contact if: you have any medication questions, your symptoms worsen, your pain is not controlled, your pain is worsening, your pain is unusual for you, your pain is concerning for you, you have a fever, your wound has increased redness, your wound has increased drainage and your wound pain has increased Follow-up/Referrals: Gareth Ragsdale MD [Primary Care Provider] - 03/04/19 2:00 pm (Please, follow up at Dr. Day's office with her supply chain assistant, Rosmery Short PA-C, on SundayMarch 04 at 2:00 pm. *If you need to change this appointment, call their office at [phone].) Diet: Regular Other Ambulatory Orders: Basic Metabolic Panel (Routine) Timeframe: 2 Days Location: Determined by Patient Ordered By: Gilda Sandra Complete Blood Count no Diff (Timed) Timeframe: 2 Days Location: Determined by Patient Ordered By: Gilda Sandra Addtl Provider Instructions: 1. Bilateral Pulmonary Emboli * Diagnosed via CT chest on admission; provoked, following recent knee surgery. * Please continue Eliquis 10 mg twice daily for 6 days followed by 5 mg twice daily (start 5 mg dosing on 03/04/19) * Please schedule an appointment with your primary care provider in 7-10 days to discuss this hospital admission. 2. Asthma Exacerbation * Please take steroid taper as follows: - Prednisone 30 mg (3 tablets) daily on 02/27/19. - Prednisone 20 mg (2 tablets) daily on Sunday02/28/19. - Prednisone 10 mg (1 tablet) daily on Sunday03/01/19 then discontinue. * Resume home inhalers as prescribed. 3. Recent Knee Surgery * Please continue weight bearing as tolerated on the left knee. * Follow up with orthopedics as scheduled for outpatient evaluation. * Resume outpatient physical therapy in 4-5 days. 4. Pulmonary Nodules * You will need follow up imaging in 3-6 months for re-evaluation. 5. Macrocytic Anemia * A script was provided for lab work -- please have labs collected on SundayFebruary 28. Results will need to be faxed to your primary care provider. * Please follow up regarding results of Cologuard testing. * Monitor for signs of bleeding in setting of a blood thinner -- including vomiting up blood, nose bleeds, blood in the urine, black tarry stools or gross blood in the stools. 6. Dehydration * Please drink plenty of fluids at home -- at least 8-10 glasses of water per day. * A script was provided for outpatient labs to monitor renal function - please have labs collected on SundayFebruary 28. Prescriptions: New Eliquis 5 mg Tablet 10 mg PO BID 30 Days Qty: 72 RF: 2 prednisone 10 mg tablet 30 mg PO DAILY Qty: 6 RF: 0 Continued omeprazole 40 mg capsule,delayed release(DR/EC) 40 mg PO QAM Qty: 90 RF: 1 levothyroxine 75 mcg tablet 75 mcg PO QAM Qty: 30 RF: 5 PreserVision AREDS-2 [id number]-mg Capsule 1 tab PO HS RF: 0 oxycodone 5 mg Tablet 5 mg PO Q4H PRN (Reason: pain) Qty: 30 RF: 0 atorvastatin 10 mg Tablet 10 mg PO HS RF: 0 epinephrine [EpiPen] 0.3 mg/0.3 mL Auto-Injector 0.3 mg IM Q3H PRN (Reason: Allergic Reaction) RF: 0 fluticasone propion-salmeterol [Advair Diskus] 100-50 mcg/dose Blister With Device 1 puff INHALATION BID RF: 0 albuterol sulfate [Proventil HFA] 90 mcg/actuation Hfa Aerosol Inhaler 1 puff INHALATION Q6H PRN (Reason: Shortness Of Breath Or Wheezing) RF: 0 fluticasone propionate [Flonase Allergy Relief] 50 mcg/actuation [place],Suspension 1 spray INTRANASAL BID RF: 0 cholecalciferol (vitamin D3) [Vitamin D3] 1,000 unit Capsule 1,000 unit PO QAM RF: 0 Zyrtec 10 mg Capsule 10 mg PO QAM RF: 0 calcium carb-D3-mag ox-zinc ox 333 mg-133 unit -133 mg-5 mg Tablet 1 tab PO HS RF: 0 acetaminophen [Tylenol Extra Strength] 500 mg tablet 1,000 mg PO Q8 PRN (Reason: Pain) RF: 0 Discontinued Xarelto 10 mg tablet 10 mg PO QAM RF: 0 Stand-Alone Forms: My [facility] [employer] [facility]/Other Patient Handouts: Apixaban Oral tablet, Prednisone Oral tablet, Asthma, Inhaler Use, Triggers Control Discharge Orders: Discharge Order (Routine); Ordered 02/26/19 Ordered By: Gilda Sandra Admission Data Admit Date/Time: 02/24/19 16:21 Attending Provider: Adeola Anglin Admit Provider: Brien Pagan Primary Care Provider: Gareth Ragsdale V. Other Providers: Brien Pagan ; Jose Miguel Holly Service: Telemetry Other Interventions: Discharge Summary Assessment (RN) Last Done: 02/26/19 14:26 Pending Studies at Discharge: No DC Date/Time DO NOT enter until pt leaves facility: 02/26/19 15:22 Supervising Physician Co-Signing Physician Notes PA Supervision Note: I personally saw and examined the patient. I verified all lopez points and agree with LALITA Sandra with the following exceptions and/or additions: Doing very well, no SOB or CP Likely was asthma exacerbation which caused her symptoms as had just tiny PEs, however could have been the PEs Either, way, will treat with AC for PEs, continue prednisone taper for asthma exacerbation Other issues as outlined above Vitals reviewed NAD RRR no mgr CTAB no wcr LLE with large amount of edema and ecchymosis from prox thigh to ankle, no hematomas Stable for dc to home
[2019-03-04] MEDS ORDERED: APIXABAN 2.5 MG TAB PO SCH (21:00)
== END 2019-02-26 15:22 | disposition home or self-care (01) | DRG 300 ==
LOC: ED 13:01 → 2S 16:21 → SUATTDRO 16:21 → 2S 18:00